=== PATIENT | male | born 1980 | race Caucasian/White ===

== ENCOUNTER 2016-05-18 11:04 | Emergency (ER) | payer OTHER ==
[2016-05-18 11:16] VITALS: BMI 23.5
[2016-05-18] MEDS ORDERED: ONDANSETRON 4 MG/2 ML VIAL ONE (11:48)
--- NOTE | 2016-05-18 11:50 | PDOC ---
History of Present Illness - General History Source: Patient - History of Present Illness Initial Comments: 05/18/16 12:06 The patient is a 35 year old male, with no significant past medical history who presents to the emergency department with nausea, abdominal pain, vomiting, loss of appetite, and diarrhea for about 4 days. Patient reports having a spinal disc fusion (s/p work related accident) about 2 years ago, and being prescribed percocets for pain. He reports since the surgery continuing taking percocets, taking them more regularly for the past 3-6 months. He reports trying to stop taking percocet, having noticed a recent dependency. He states stop taking percocets about 4 days ago and notes becoming symptomatic around the same time. He reports since then having multiple episodes of vomiting bring up yellow fluid. He also notes having constant sharp abdominal pain, ranking his pain a 9/10 in pain intensity. He denies any recent fevers, chills, headache or dizziness. Allergies: NKA Past surgical history: Spinal disc fusion (2 years ago) Social History: Current everyday smoker (10 cigarettes per day). Cocaine and marijuana use. See HPI. PCP: None reported. <Jesus Mendez - Last Filed: 05/18/16 12:09> - General History Source: Patient, Old Records Exam Limitations: No Limitations <Patricia Guzman - Last Filed: 05/18/16 16:57> - General Chief Complaint: Vomiting/Diarrhea Stated Complaint: withdrawal of percocet VOMITING, LOSS OF APPETITE Time Seen by Provider: 05/18/16 11:49 Past History <Jesus Mendez - Last Filed: 05/18/16 12:09> - Past Medical History Other medical history: back problem - Psycho/Social/Smoking Cessation Hx Anxiety: No Suicidal Ideation: No Smoking Status: No Smoking History: Current every day smoker Have you smoked in the past 12 months: Yes Number of Cigarettes Smoked Daily: 10 Information on smoking cessation initiated: Yes 'Breaking Loose' booklet given: 05/18/16 Hx Alcohol Use: No Drug/Substance Use Hx: No Substance Use Type: None <Patricia Guzman - Last Filed: 05/18/16 16:57> - Past Medical History Allergies/Adverse Reactions: Allergies Allergy/AdvReac Type Severity Reaction Status Date / Time No Known Allergies Allergy Verified 05/18/16 11:11 Home Medications: Ambulatory Orders No Home Medications 0 dose .ROUTE UTDICT 09/24/12 Review of Systems - Review of Systems Able to Perform ROS?: Yes Comments:: 05/18/16 12:06 CONSTITUTIONAL: +loss of appetite. Absent: fever, no chills, no fatigue EYES: Absent: visual changes ENT: Absent: ear pain, no sore throat CARDIOVASCULAR: Absent: chest pain, no palpitations RESPIRATORY: Absent: cough, no SOB GI: +nausea, vomiting, diarrhea, abdominal pain ,no constipation, GENITOURINARY: Absent: dysuria, no frequency, no hematuria MUSKULOSKELETAL: Absent: back pain, no arthralgia, no myalgia SKIN: Absent: rash NEURO: Absent: headache <Jesus Mendez - Last Filed: 05/18/16 12:09> *Physical Exam - Vital Signs Last Vital Signs Temp Pulse Resp BP Pulse Ox 98.0 F 118 H 18 129/74 100 05/18/16 11:13 05/18/16 11:13 05/18/16 11:13 05/18/16 11:13 05/18/16 11:13 - Physical Exam Comments: 05/18/16 12:06 GENERAL: Well developed, well nourished. Awake and alert. No acute distress. HEENT: Normocephalic, atraumatic. PERRLA, EOMI. No conjunctival pallor. Sclera are non- icteric. Moist mucous membranes. Oropharynx is clear. NECK: Supple. Full ROM. No JVD. Carotid pulses 2+ and symmetric, without bruits. No thyromegaly. No lymphadenopathy. CARDIOVASCULAR: Regular rate and rhythm. No murmurs, rubs, or gallops. Distal pulses are 2+ and symmetric. PULMONARY: No evidence of respiratory distress. Lungs clear to auscultation bilaterally. No wheezing, rales or rhonchi. ABDOMINAL: Soft. Non-tender. Non-distended. No rebound or guarding. No organomegaly. Normoactive bowel sounds. MUSCULOSKELETAL Normal range of motion at all joints. No bony deformities or tenderness. No CVA tenderness. EXTREMITIES: No cyanosis. No clubbing. No edema. No calf tenderness. SKIN: Warm and dry. Normal capillary refill. No rashes. No jaundice. NEUROLOGICAL: Alert, awake, appropriate. Cranial nerves 2-12 intact. No deficits to light touch and temperature in face, upper extremities and lower extremities. No motor deficits in the in face, upper extremities and lower extremities. Normoreflexic in the upper and lower extremities. Normal speech. Toes are down- going bilaterally. Gait is normal without ataxia. PSYCHIATRIC: Cooperative. Good eye contact. Appropriate mood and affect. <Jesus Mendez - Last Filed: 05/18/16 12:09> - Vital Signs Last Vital Signs Temp Pulse Resp BP Pulse Ox 98.0 F 118 H 18 129/74 100 05/18/16 11:13 05/18/16 11:13 05/18/16 11:13 05/18/16 11:13 05/18/16 11:13 <Patricia Guzman - Last Filed: 05/18/16 16:57> ED Treatment Course - LABORATORY CBC & Chemistry Diagram: 05/18/16 12:00 05/18/16 12:00 <Jesus Mendez - Last Filed: 05/18/16 12:09> - LABORATORY CBC & Chemistry Diagram: 05/18/16 12:00 05/18/16 12:00 <Patricia Guzman - Last Filed: 05/18/16 16:57> Medical Decision Making - Medical Decision Making 05/18/16 12:04 35-year-old male with history of chronic opiate dependence secondary to Percocet use from a prior spinal injury presents to the emergency Department with complaints of abdominal cramping and vomiting after not taking Percocet for the past 4 days. Differential diagnosis includes but is not limited to: Opiate withdrawal, dehydration, electrolyte abnormality, toxic/metabolic derangement. Plan: 1. Labs 2. IV fluids for hydration 3. Supportive treatment with antiemetics 4. Buprinex 5. Observe and reevaluate 05/18/16 15:28 Addendum: The patient's labs and ultrasound were reviewed and are noted in the EMR. He is feeling improved but is emotionally upset about his dependenace on opiates. I have counseled the patient and will give him information for detox/ rehab centers. I have advised the patient that he should follow-up with a PCP and to return to the ED if his Sx persist, worsen or new Sx arise. <Patricia Guzman - Last Filed: 05/18/16 16:57> *DC/Admit/Observation/Transfer - Attestations Scribe Attestion: 05/18/16 12:07 Documentation prepared by Jesus Mendez, acting as certified medical records coder for Patricia Guzman MD. <Jesus Mendez - Last Filed: 05/18/16 12:09> - Discharge Dispostion Admit: No - Attestations Physician Attestion: 05/18/16 12:06 I, Dr. Patricia Guzman, attest that the scribes documentation that appears above has been prepared under my direction and personally reviewed by me in its entirety. I confirmed that the note above accurately reflects all work, treatment, procedures, and medical decision-making performed by me. <Patricia Guzman - Last Filed: 05/18/16 16:57> Diagnosis at time of Disposition: Opioid withdrawal - Discharge Dispostion Disposition: HOME Condition at time of disposition: Stable - Patient Instructions Printed Discharge Instructions: DI for Prescription Opioid Use, DI for Opioid Addiction Additional Instructions: You may eat or drink anything that is not a gastric irritant. Follow-up with a primary care physician within one week and return to the ED if your symptoms persist, worsen or new symptoms arise.
[2016-05-18] MEDS ORDERED: SODIUM CHLORIDE 1,000 ML IV STA ×2 (12:03→13:47)
[2016-05-18] MEDS ORDERED: BUPRENORPHINE HCL 8 MG TAB.SUBL SL ONE (12:04)
[2016-05-18] MEDS ORDERED: ONDANSETRON 4 MG/2 ML VIAL IVPUSH ONE (12:09)
[2016-05-18 12:15] LABS: BASOPHIL 0.2 % (0-2.0); MCH 30.6 pg (25.7-33.7); MCHC 32.9 g/dl (32.0-35.9); MEAN CELL VOLUME 92.9 fl (80-96); MEAN PLT VOLUME 8.3 fl (7.5-11.1); NEUTROPHILS 88.5 % (42.8-82.8); PLATELET COUNT 423 K/MM3 (134-434); RDW 13.5 % (11.9-15.9); WHITE BLOOD COUNT 16.8 K/mm3 (4.0-10.0)
[2016-05-18 12:38] LABS: ALBUMIN 4.9 g/dl (3.4-5.0); ANION GAP 12 (8-16); CALCIUM 10.7 mg/dL (8.5-10.1); CO2 25 mmol/L (21-32); CREATININE 0.9 mg/dL (0.7-1.3); GLUCOSE,RANDOM 106 mg/dL (74-106); MAGNESIUM 2.2 mg/dL (1.8-2.4); PHOSPHOROUS 3.4 mg/dL (2.5-4.9); SGOT/AST 25 U/L (15-37); SGPT/ALT 51 U/L (12-78)
[2016-05-18 12:39] LABS: ALK PHOS 60 U/L (45-117); BILIRUBIN,TOTAL 1.6 mg/dL (0.2-1.0)
[2016-05-18] MEDS ORDERED: FAMOTIDINE 20 MG/50 ML IVPB 50 ML IVPB ONE ×2 (13:48→14:06)
[2016-05-18 16:57] VITALS: BP 149/85; PULSE 89; TEMP 99.4
== END 2016-05-18 17:20 | disposition home or self-care (01) ==
LOC: JER 11:04
PROC: 3E033GC Introduction of Other Therapeutic Substance into Peripheral Vein, Percutaneous Approach (ICD-10-PCS; principal; 2016-05-18)
DX: F11.23 Opioid dependence with withdrawal (principal); T40.2X5A Adverse effect of other opioids, initial encounter; Y92.038 Other place in apartment as the place of occurrence of the external cause
CPT/HCPCS: 36415; 76700-TC; 80053; 80307; 83690; 83735; 84100; 85025; 99283-25

== ENCOUNTER 2016-11-29 19:44 | Emergency (ER) | payer OTHER ==
[2016-11-29 19:51] VITALS: BP 136/92; PULSE 100; TEMP 99.8; BMI 25.0
[2016-11-29] MEDS ORDERED: cloNIDine HCL 0.1 MG TABLET PO ONE ×2 (19:55→19:57)
[2016-11-29] MEDS ORDERED: cloNIDine HCL 0.1 MG TABLET ONE (19:56)
[2016-11-29] MEDS ORDERED: ONDANSETRON *ODT* 4 MG TABLET ONE (19:57)
[2016-11-29] MEDS ORDERED: ONDANSETRON *ODT* 4 MG TABLET SL ONE (19:57)
--- NOTE | 2016-11-29 19:57 | PDOC ---
History of Present Illness - General History Source: Patient Exam Limitations: No Limitations - History of Present Illness Initial Comments: 11/29/16 20:05 The patient is a 35 year old male, with a significant past medical history of a spinal disk fusion(on percocet for pain) and chronic back pain, who presents to the emergency department complaining of percocet withdrawal for approximately 2 days. The patient reports he has been taking percocet 10 mg 3 times a day intermittently for the past 2 years and consistently during the past 6 months. Patient reports he stopped taking percocet 2 days ago. However, since he stopped his medication he has developed associated abdominal pain, nausea, and vomiting(nonbloody/ nonbilious). Patient reports associated anxiety. He denies any chest pain, shortness of breath, diaphoresis, or palpitations. He denies any fever, chills, headache, or dizziness. PAST MEDICAL HISTORY: Chronic back pain PAST SURGICAL HISTORY: Spinal disk fusion FAMILY HISTORY: no pertinent history SOCIAL HISTORY: Pt lives with family and is employed. Current everyday smoker. Social ETOH use. Medical marijuna use. MEDICATIONS: reviewed ALLERGIES: As per nursing notes General: No fevers or chills, no weakness, no weight loss HEENT: No change in vision. No sore throat,. No ear pain CardioVascular: No chest pain or shortness of breath Respiratory:No cough, or wheezing. Gastrointestinal: Yes: +abdominal pain, +nausea, +vomiting. No diarrhea or constipation. No rectal bleeding Genitourinary: No dysuria, hematuria, or frequency Musculoskeletal: No joint or muscle pain or swelling Neurologic: No headache, vertigo, dizziness or loss of consciousness Psychiatric: Yes: +anxiety. No depression Skin: No rashes or easy bruising Endocrine: no increased thirst or abnormal weight change Allergic: no skin or latex allergy All other systems reviewed and normal General: Well-nourished well-developed individual, no acute distress HEENT: Throat: Normal, tonsils normal, no erythema or exudate Neck: Supple, no meningeal signs, no lymphadenopathy Eyes::Pupils equal reactive and round, extraocular motion intact Chest: Nontender to palpation Cardiac: Tachycardic. S1-S2 normal, regular rhythm, no murmurs rubs or gallops Respiratory: Lungs clear to auscultation bilateral Abdomen: Mild increase in bowel sounds. Soft, nondistended, nontender to palpation diffusely Extremities: Warm, dry, no cyanosis, clubbing, or edema Skin: No rashes Neuro: Alert and oriented x3, nonfocal exam, grossly intact, normal gait Psych: Normal mood and affect <Pal Miranda - Last Filed: 11/29/16 20:06> - General History Source: Patient Exam Limitations: No Limitations <Thalia Medina I - Last Filed: 11/29/16 21:51> - General Chief Complaint: Vomiting/Diarrhea Stated Complaint: WITHDRAWL FROM PERCOCET Time Seen by Provider: 11/29/16 19:54 Past History <Pal Miranda - Last Filed: 11/29/16 20:06> - Psycho/Social/Smoking Cessation Hx Anxiety: No Suicidal Ideation: No Smoking Status: No Smoking History: Current every day smoker Have you smoked in the past 12 months: Yes Number of Cigarettes Smoked Daily: 10 Information on smoking cessation initiated: Yes 'Breaking Loose' booklet given: 05/18/16 Hx Alcohol Use: Yes (OCCAS.) Drug/Substance Use Hx: Yes (MEDICAL MARIJUANA) Substance Use Type: None <Thalia Medina I - Last Filed: 11/29/16 21:51> - Past Medical History Allergies/Adverse Reactions: Allergies Allergy/AdvReac Type Severity Reaction Status Date / Time No Known Allergies Allergy Verified 11/29/16 19:46 Home Medications: Ambulatory Orders No Home Medications 0 dose .ROUTE UTDICT 09/24/12 Clonidine HCl 0.1 mg PO Q4H PRN #76 tablet 11/29/16 *Physical Exam - Vital Signs Last Vital Signs Temp Pulse Resp BP Pulse Ox 99.8 F H 100 H 20 136/92 100 11/29/16 19:46 11/29/16 19:46 11/29/16 19:46 11/29/16 19:46 11/29/16 19:46 <Pal Miranda - Last Filed: 11/29/16 20:06> - Vital Signs Last Vital Signs Temp Pulse Resp BP Pulse Ox 99.8 F H 100 H 20 136/92 100 11/29/16 19:46 11/29/16 19:46 11/29/16 19:46 11/29/16 19:46 11/29/16 19:46 <Thalia Medina I - Last Filed: 11/29/16 21:51> *DC/Admit/Observation/Transfer - Attestations Scribe Attestion: 11/29/16 20:06 Documentation prepared by Pal Miranda, acting as medical care administrator for Thalia Medina MD. <Pal Miranda - Last Filed: 11/29/16 20:06> - Discharge Dispostion Admit: No <Thaila Medina I - Last Filed: 11/29/16 21:51> Diagnosis at time of Disposition: OPIOD WITHDRAWL - Discharge Dispostion Disposition: HOME Condition at time of disposition: Stable - Prescriptions Prescriptions: Clonidine HCl 0.1 mg PO Q4H PRN #76 tablet PRN Reason: Withdrawal(Cont Subst) - Patient Instructions Additional Instructions: Take clonidine for your withdrawal symptoms as per the following protocol. Day 1: 0.1-0.2 mg orally every 4 hours up to 1 mg Day 2-4: 0.1-0.2 mg orally every 4 hours up to 1.2 mg You will be detoxed of the opiods in 4 days, However you will then need to taper the clonidine for another 5 days Day 5 to completion: Reduce 0.2 mg/day; given in divided doses; the night-time dose should be reduced last; or reduce total dosage by one-half each day not to exceed 0.4 mg/day You will be detoxed of the opiods in 5 days, However you will then need to taper the clonidine for another 5 days Blood pressure monitoring is important as hypotension can occur especially in thin patients. Advise patient to take blood pressure before and 20 minutes after a dose of Clonidine. If lightheaded or dizzy, patient should lie down. Adequate fluid intake is important. Contact physician if dizziness continues .Using clonidine for opiate withdrawal can help to relieve some of the most severe symptoms. However, using clonidine for opiate withdrawal will not eliminate all of your symptoms. Using clonidine for opiate withdrawal does nothing for fatigue, nor does have the ability to rebalance brain chemistry that has been disrupted from opiate abuse. (will not take away the cravings for opiods). Return to the emergency department immediately with ANY new, persistent or worsening symptoms. Continue any medications as previously prescribed by your physician. You should follow up with your primary doctor as soon as possible regarding today's emergency department visit. . Please make sure your doctor reviews the results of your emergency evaluation. Thank you for coming to the Emergency Department today for your care. It was a pleasure to see you today. Please note that your evaluation is INCOMPLETE until you follow-up with your doctor.
[2016-11-29] MEDS ORDERED: SODIUM CHLORIDE 1,000 ML IV ONE (20:09)
== END 2016-11-29 21:11 | disposition home or self-care (01) ==
LOC: FER 19:44
PROC: 3E0337Z Introduction of Electrolytic and Water Balance Substance into Peripheral Vein, Percutaneous Approach (ICD-10-PCS; principal; 2016-11-29)
DX: F11.23 Opioid dependence with withdrawal (principal); F17.210 Nicotine dependence, cigarettes, uncomplicated; G89.29 Other chronic pain
CPT/HCPCS: 99281-25

== ENCOUNTER 2017-03-21 07:30 | Emergency (ER) | payer OTHER ==
[2017-03-21] MEDS ORDERED: SODIUM CHLORIDE 0.9% 1000 ML INFUS.BAG IV ONE ×3 (07:33→09:55)
[2017-03-21] MEDS ORDERED: ONDANSETRON 4 MG/2 ML VIAL IVPUSH ONE (07:33)
[2017-03-21] MEDS ORDERED: FAMOTIDINE 20 MG/50 ML IVPB 20 MG/50 ML MG IVPB ONE (07:33)
[2017-03-21] MEDS ORDERED: DICYCLOMINE HCL 20 MG/2 ML AMPUL IM ONE (07:33)
[2017-03-21 07:34] VITALS: TEMP 98.4; BMI 23.5
--- NOTE | 2017-03-21 07:42 | PDOC ---
History of Present Illness - General Chief Complaint: Pain Stated Complaint: ABDOMINAL PAIN,VOMITING Time Seen by Provider: 03/21/17 07:32 - History of Present Illness Initial Comments: 03/21/17 07:36 36yo male presents ambulatory from home c/o epigastric abd pain assoc with n/v/ d. States his symptoms started yesterday. States 6-8 episodes of vomiting - nonbloody/nonbilious and loose stool. No blood in the stool. States he has had a problem with taking percocet. States he wax injured at work - works with [employer] where his eye and back were injured. States he has had a fusion in his back. States he has stopped taking the percocet before and then if the pain gets bad he will start again and then spiral down with the percocet use. States he was given clonidine to help him stop taking the percocet. States last percocet use was 4 days ago. States symptoms started yesterday. Denies other drug use or etoh use. Denies f/c. NO dysuria. No radiation of the pain. Denies all other complaints. PMHx: narcotic abuse PSHx: spinal surgery Allergies: NKDA Social: denies etoh, smokes cigarrettes, percocet use Past History - Past Medical History Allergies/Adverse Reactions: Allergies Allergy/AdvReac Type Severity Reaction Status Date / Time No Known Allergies Allergy Verified 03/21/17 07:31 Home Medications: Ambulatory Orders Clonidine HCl 0.1 mg PO Q4H PRN #76 tablet 11/29/16 Dicyclomine HCl [Bentyl] 10 mg GT TID PRN #10 capsule 03/21/17 Famotidine [Pepcid] 20 mg PO DAILY #14 tablet 03/21/17 Ondansetron [Zofran Odt -] 4 mg GT TID PRN #10 tab.rapdis 03/21/17 Oxycodone HCl/Acetaminophen [Percocet 5-325 mg Tablet] 0 tab PO ASDIR 03/21/17 COPD: No Other medical history: back pain due to work related injury - Suicide/Smoking/Psychosocial Hx Smoking Status: No Smoking History: Former smoker Have you smoked in the past 12 months: Yes Number of Cigarettes Smoked Daily: 10 Information on smoking cessation initiated: Yes 'Breaking Loose' booklet given: 03/21/17 Hx Alcohol Use: Yes (occasional) Drug/Substance Use Hx: No Substance Use Type: None Review of Systems - Review of Systems Able to Perform ROS?: Yes Is the patient limited Luxembourgish proficient: No Constitutional: No: Chills, Fever HEENTM: No: Nose Congestion, Throat Pain Respiratory: No: Cough, Shortness of Breath, Wheezing Cardiac (ROS): No: Chest Pain, Irregular Heart Rate ABD/GI: Yes: Diarrhea, Nausea, Vomiting, Abdominal cramping. No: Abdominal Distended : No: Burning, Dysuria Musculoskeletal: No: Back Pain Integumentary: No: Bruising Neurological: No: Headache, Numbness, Paresthesia All Other Systems: Reviewed and Negative *Physical Exam - Vital Signs Last Vital Signs Temp Pulse Resp BP Pulse Ox 98.4 F 105 H 18 141/94 99 03/21/17 07:31 03/21/17 07:31 03/21/17 07:31 03/21/17 07:31 03/21/17 07:31 - Physical Exam General Appearance: Yes: Nourished, Appropriately Dressed, Mild Distress HEENT: positive: EOMI, Normal Voice, Pharynx Normal Neck: positive: Supple. negative: Rigid Respiratory/Chest: positive: Lungs Clear, Normal Breath Sounds. negative: Chest Tender, Respiratory Distress Cardiovascular: positive: Regular Rhythm, Tachycardia Gastrointestinal/Abdominal: positive: Flat, Soft, Tenderness (epigastric region) . negative: Guarding, Rebound Lymphatic: negative: Adenopathy Musculoskeletal: positive: Normal Inspection. 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 labs reviewed mildly elevated wbc - most likely reactive vs viral gastroenteritis po challenge given 03/21/17 09:55 pt with vomiting after PO challenge. Will remedicate, give another liter ns and reassess if n/v persists may need to stay in obs for ivf hydration and nausea control 03/21/17 10:01 pt with intractable n/v - will place in observation no pmd microblog sent to [facility] 03/21/17 10:52 case discussed with Merari from - accepts pt to obs *DC/Admit/Observation/Transfer Diagnosis at time of Disposition: Opioid withdrawal, Intractable nausea and vomiting - Discharge Dispostion Condition at time of disposition: Fair Admit: Yes - Prescriptions Prescriptions: Dicyclomine HCl [Bentyl] 10 mg GT TID PRN #10 capsule PRN Reason: Mild Pain Famotidine [Pepcid] 20 mg PO DAILY #14 tablet Ondansetron [Zofran Odt -] 4 mg GT TID PRN #10 tab.rapdis PRN Reason: Nausea - Referrals Referrals: Rodger Urena MD [Staff Physician] - Dorian Escalera MD [Staff Physician] - - Patient Instructions Printed Discharge Instructions: Smoking Cessation Additional Instructions: Please stop using percocet. Please stick to the BRAT diet (bananas, rice, apple sauce, and toast). Please take all meds as prescribed. Please return to the ED with any further complaints. If you are interested in DETOX - please go to [facility]. - Post Discharge Activity
[2017-03-21] MEDS ORDERED: DICYCLOMINE HCL 20 MG TABLET PO ONE (07:49)
[2017-03-21] MEDS ORDERED: cloNIDine HCL 0.1 MG TABLET PO ONE (08:17)
[2017-03-21] MEDS ORDERED: MAG HYDROX/AL HYDROX/SIMETH 30 ML UNIT-DOSE CUP PO ONE (08:34)
[2017-03-21] MEDS ORDERED: LIDOCAINE VISCOUS 2% ORAL/TOP 20 ML UNIT-DOSE CUP MM ONE (08:34)
[2017-03-21 08:42] LABS: BASO % 0.8 % (0-2.0); MCH 31.6 pg (25.7-33.7); MEAN PLT VOLUME 9.1 fl (7.5-11.1); NEUT % 87.1 % (42.8-82.8); PLATELET COUNT 488 K/MM3 (134-434); RDW 12.6 % (11.9-15.9); WHITE BLOOD COUNT 14.4 K/mm3 (4.0-10.8)
[2017-03-21 08:51] LABS: ALK PHOS 57 U/L (32-92); ANION GAP 12 (8-16); BILIRUBIN,TOTAL 1.1 mg/dl (0.2-1.0); CALCIUM 10.7 mg/dl (8.4-10.2); CO2 28 mmol/L (22-28); CREATININE 0.8 mg/dl (0.6-1.3); GLUCOSE,RANDOM 134 mg/dl (74-106); MAGNESIUM 1.8 mg/dL (1.8-2.4); SGOT/AST 23 U/L (10-42); SGPT/ALT 29 U/L (10-40); TOT PROT 8.6 g/dl (6.4-8.3)
[2017-03-21] MEDS ORDERED: METOCLOPRAMIDE HCL INJECTION 10 MG/2 ML VIAL IVPUSH ONE (09:38)
[2017-03-21 11:19] LABS: URINE APPEARANCE Clear; URINE BILIRUBIN Negative (NEGATIVE); URINE BLOOD Negative (NEGATIVE); URINE GLUCOSE (UA) Negative (NEGATIVE); URINE KETONE Trace (NEGATIVE); URINE LEUK ESTERASE Negative (NEGATIVE); URINE NITRITE Negative (NEGATIVE); URINE UROBILINOGEN 0.2 (0.2-1.0)
[2017-03-21 11:20] VITALS: BP 137/89; PULSE 80
[2017-03-21 11:23] LABS: URINE COLOR YELLOW; URINE PROTEIN 1+ (NEGATIVE)
[2017-03-21 12:00] LABS: URINE RBC NEGATIVE /hpf (0-3)
[2017-03-21 12:01] LABS: URINE HYALINE CAST 0-1 /lpf; URINE WBC 0-1 (0-2)
[2017-03-21 15:22] LABS: BASO # 0.1 # (0.1-1)
[2017-03-21 15:25] LABS: LYMPH # 1.3 # (8-40); MONO # 0.5 #; NEUT # 12.5 # (42.8-82.8)
== END 2017-03-21 11:28 | disposition home or self-care (01) ==
LOC: FER 07:30 → FM/S 11:05 → UNDOADMOB 11:05 → FER 11:28
PROC: 3E0337Z Introduction of Electrolytic and Water Balance Substance into Peripheral Vein, Percutaneous Approach (ICD-10-PCS; principal; 2017-03-21)
DX: F11.23 Opioid dependence with withdrawal (principal); R11.2 Nausea with vomiting, unspecified; Z87.891 Personal history of nicotine dependence
CPT/HCPCS: 36415; 80053; 81003; 81015; 83605; 83690; 83735; 85025; 99283-25

== ENCOUNTER 2018-04-25 21:11 | Inpatient (IN) | payer OTHER ==
[2018-04-25 21:32] VITALS: BMI 24.7
--- NOTE | 2018-04-25 21:34 | PDOC ---
History of Present Illness - General History Source: Patient, Spouse Exam Limitations: No Limitations - History of Present Illness Initial Comments: 04/25/18 22:37 The patient is a 37 year old male, with a significant past medical history of opioid abuse, who presents to the emergency department with, pain to the right buttock with associated nausea and vomiting. As per patient, he received a Vivitrol shot a week ago and approximately 3 days later he began experiencing pain to the injection site with associated swelling and inability to lay/sit on the buttock. The patient notes going to urgent care yesterday and having an ultrasound of the buttock done today which depicted either fluid or a bruising to the area. She notes today he began feeling chills, nausea, and vomiting, prompting his arrival to the ED. He denies any purulent discharge to the buttock. He denies any recent =headache or dizziness. He denies any recent diarrhea or constipation. He denies any recent chest pain or shortness of breath. He denies any recent dysuria, frequency, urgency or hematuria. Allergies: NKDA Social History: Smoker (2-3 per day, on Chantix for a week has not taken the past two days). <Sandeep Gutierrez - Last Filed: 04/25/18 23:15> <Brianda Starkey - Last Filed: 04/26/18 02:10> - General Chief Complaint: Pain, Acute Stated Complaint: PAIN POST VIVITROL INJECTION Time Seen by Provider: 04/25/18 21:14 Past History <Sandeep Gutierrez - Last Filed: 04/25/18 23:15> - Past Medical History COPD: No DVT: No - Suicide/Smoking/Psychosocial Hx Smoking Status: No Smoking History: Current every day smoker Have you smoked in the past 12 months: Yes Number of Cigarettes Smoked Daily: 1 Information on smoking cessation initiated: Yes 'Breaking Loose' booklet given: 03/21/17 Hx Alcohol Use: No Drug/Substance Use Hx: No Substance Use Type: Alcohol, Opiates <Brianda Starkey - Last Filed: 04/26/18 02:10> - Past Medical History Allergies/Adverse Reactions: Allergies Allergy/AdvReac Type Severity Reaction Status Date / Time No Known Allergies Allergy Verified 04/25/18 21:12 Home Medications: Ambulatory Orders Naltrexone Microspheres [Vivitrol] 380 mg IM MONTHLY 04/25/18 Review of Systems - Review of Systems Able to Perform ROS?: Yes Comments:: 04/25/18 22:38 CONSTITUTIONAL: Present: Chills. Absent: fever, no fatigue EYES: Absent: visual changes ENT: Absent: ear pain, no sore throat CARDIOVASCULAR: Absent: chest pain, no palpitations RESPIRATORY: Absent: cough, no SOB GI: Present: Nausea, vomiting. Absent: abdominal pain, no constipation, no diarrhea GENITOURINARY: Absent: dysuria, no frequency, no hematuria MUSKULOSKELETAL: Present: Right buttock pain. SKIN: Absent: rash NEURO: Absent: headache All Other Systems: Reviewed and Negative <Sandeep Gutierrez - Last Filed: 04/25/18 23:15> *Physical Exam - Vital Signs Last Vital Signs Temp Pulse Resp BP Pulse Ox 98.2 F 90 16 135/91 99 04/25/18 21:17 04/25/18 21:17 04/25/18 21:17 04/25/18 21:17 04/25/18 21:17 - Physical Exam Comments: 04/25/18 22:39 GENERAL: The patient is awake, alert, and fully oriented, in no acute distress. HEAD:Normal with no signs of trauma. EYES: Pupils equal, round and reactive to light, extraocular movements intact, sclera anicteric, conjunctiva clear. EXTREMITIES: Normal range of motion, no edema. BUTTOCK: Right: 12cm x 7cm of firm marked tenderness, edematous area of the right buttock. No erythema, fluctuance, warmth, or purulent discharge. NEUROLOGICAL: Normal speech, normal gait. Sensation to bilateral upper and lower extremities equal 5/5. PSYCH: Normal mood, normal affect. <Sandeep Gutierrez - Last Filed: 04/25/18 23:15> - Vital Signs Last Vital Signs Temp Pulse Resp BP Pulse Ox 98.2 F 90 16 135/91 99 04/25/18 21:17 04/25/18 21:17 04/25/18 21:17 04/25/18 21:17 04/25/18 21:17 <Brianda Starkey - Last Filed: 04/26/18 02:10> Moderate Sedation - Procedure Monitoring Vital Signs: Procedure Monitoring Vital Signs Temperature 98.2 F 04/25/18 21:17 Pulse Rate 90 04/25/18 21:17 Respiratory Rate 16 04/25/18 21:17 Blood Pressure 135/91 04/25/18 21:17 O2 Sat by Pulse Oximetry (%) 99 04/25/18 21:17 <Sandeep Gutierrez - Last Filed: 04/25/18 23:15> - Procedure Monitoring Vital Signs: Procedure Monitoring Vital Signs Temperature 98.2 F 04/25/18 21:17 Pulse Rate 90 04/25/18 21:17 Respiratory Rate 16 04/25/18 21:17 Blood Pressure 135/91 04/25/18 21:17 O2 Sat by Pulse Oximetry (%) 99 04/25/18 21:17 <Brianda Starkey - Last Filed: 04/26/18 02:10> ED Treatment Course - LABORATORY CBC & Chemistry Diagram: 04/25/18 22:45 04/25/18 22:45 <Sandeep Gutierrez - Last Filed: 04/25/18 23:15> - LABORATORY CBC & Chemistry Diagram: 04/25/18 22:45 04/25/18 22:45 <Brianda Starkey - Last Filed: 04/26/18 02:10> Medical Decision Making - Medical Decision Making Documentation has been prepared under my direction and personally reviewed by me in its entirety. I attest that this documented accurately reflects all work, treatment, procedures and medical decision making performed by me. As noted above, this 37-year-old man with a history of opioid dependence but no other significant medical history except for chronic low back pain and spinal fusion secondary to work related injury presents with progressive pain in right buttock in the area of Vivitrol IM injection one week ago. Patient has had subjective fever and chills today and intermittent nausea/vomiting. No previous history of bruising/prolonged bleeding. No history of cellulitis or abscess. Exam as noted. Patient is afebrile without evidence of hypotension. There is mild tachycardia 90 bpm Laboratory evaluation notable for white blood cell count 16,100; INR slightly elevated 1.22. Chemistry profile is essentially normal CT scan with contrast of right buttock performed. Preliminary interpretation by Imaging telecommunications repairer: 7.6 centimeter peripherally enhancing collection within the right gluteus malena muscle. Interpretation discussed with radiologist: because of the heterogeneity and ring enhancement of the collection, it is most consistent with abscess. Blood cultures drawn. Vancomycin 1 g IV started. 04/26/18 02:09 Case discussed with Sarika from [facility] service. Patient will be admitted as inpatient under 's service. <Brianda Starkey - Last Filed: 04/26/18 02:10> *DC/Admit/Observation/Transfer - Attestations Scribe Attestion: 04/25/18 22:41 Documentation prepared by Sandeep Gutierrez, acting as certified medical aide for Brianda Starkey MD. <Sandeep Gutierrez - Last Filed: 04/25/18 23:15> - Discharge Dispostion Decision to Admit order: Yes <Brianda Starkey - Last Filed: 04/26/18 02:10> Diagnosis at time of Disposition: Abscess of right buttock - Discharge Dispostion Condition at time of disposition: Stable
[2018-04-25] MEDS ORDERED: ACETAMINOPHEN 1000 MG/100 ML VIAL (NON FORMULARY) IVPB ONE (22:30)
[2018-04-25] MEDS ORDERED: ACETAMINOPHEN INJECTION 100 ML IVPB ONE (22:45)
[2018-04-25 22:53] LABS: BASO % 0.4 % (0-2.0); EOS % 0.9 % (0-4.5); HEMATOCRIT 43.7 % (35.4-49); HEMOGLOBIN 14.3 GM/dl (11.7-16.9); LYMPH % 12.7 % (8-40); MCH 31.1 pg (25.7-33.7); MCHC 32.7 g/dl (32.0-35.9); MEAN PLT VOLUME 8.2 fl (7.5-11.1); MONO % 6.3 % (3.8-10.2); NEUT % 79.7 % (42.8-82.8); PLATELET COUNT 477 K/MM3 (134-434); RBC 4.59 M/mm3 (4.00-5.60); RDW 12.6 % (11.9-15.9); WHITE BLOOD COUNT 16.1 K/mm3 (4.0-10.8)
[2018-04-25 23:08] LABS: INR 1.22 (0.82-1.09); PROTHROMBIN TIME (PATIENT) 13.6 SEC (10.2-13.0)
[2018-04-25 23:13] LABS: ALBUMIN 3.8 g/dl (3.4-5.0); ALK PHOS 62 U/L (45-117); ANION GAP 9 MMOL/L (8-16); BILIRUBIN,TOTAL 0.5 mg/dl (0.2-1); BLOOD UREA NITROGEN 10 mg/dl (7-18); CHLORIDE 105 mmol/L (98-107); CO2 23 mmol/L (21-32); CREATININE 0.6 mg/dl (0.55-1.3); GLUCOSE,RANDOM 105 mg/dl (74-106); POTASSIUM 3.5 mmol/L (3.5-5.1); SGOT/AST 24 U/L (15-37); SGPT/ALT 26 U/L (13-61); SODIUM 137 mmol/L (136-145); TOT PROT 7.3 g/dl (6.4-8.2)
[2018-04-26] MEDS ORDERED: VANCOMYCIN 1,000 MG VIAL (RESTRICTED TO ID ONLY) ONE (01:21)
[2018-04-26] MEDS: VANCOMYCIN 1 GM in D5W (PRE-DOCKED) 1,000 MG/250 ML IVPB ONE ×2 (01:31→03:29)
[2018-04-26] MEDS ORDERED: ACETAMINOPHEN 325 MG TABLET (FP) PO PRN (02:28)
[2018-04-26] MEDS ORDERED: SODIUM CHLORIDE 1,000 ML IV STA (07:33)
[2018-04-26] MEDS ORDERED: PIPERACILLIN/TAZOB 3.375 GM 3.375 GM in DEXTROSE 5%-WATER - 50 ML IVPB ONE (07:45)
[2018-04-26] MEDS ORDERED: PIPERACILLIN/TAZOBACTAM 3.375 GM VIAL IVPB ONE ×2 (08:00→17:15)
[2018-04-26] MEDS ORDERED: DEXTROSE 5%-WATER - 50 ML IVPB ONE ×2 (08:00→17:15)
[2018-04-26 08:08] LABS: ANION GAP 7 MMOL/L (8-16); BLOOD UREA NITROGEN 6 mg/dl (7-18); CHLORIDE 104 mmol/L (98-107); CO2 28 mmol/L (21-32); CREATININE 0.7 mg/dl (0.55-1.3); GLUCOSE,RANDOM 102 mg/dl (74-106); POTASSIUM 3.7 mmol/L (3.5-5.1); SODIUM 139 mmol/L (136-145)
[2018-04-26 08:12] LABS: HEMATOCRIT 39.8 % (35.4-49); MCH 31.3 pg (25.7-33.7); MCHC 32.7 g/dl (32.0-35.9); MEAN CELL VOLUME 95.7 fl (80-96); MEAN PLT VOLUME 8.5 fl (7.5-11.1); PLATELET COUNT 441 K/MM3 (134-434); RBC 4.15 M/mm3 (4.00-5.60); RDW 12.3 % (11.9-15.9); WHITE BLOOD COUNT 15.4 K/mm3 (4.0-10.8)
[2018-04-26] MEDS: SODIUM CHLORIDE 1,000 ML IV SCH (08:25)
--- NOTE | 2018-04-26 10:20 | CONSULT ---
Consult Consult Specialty:: General Surgery Referred by:: Rio Reason for Consultation:: Buttock Abscess - History of Present Illness Chief Complaint: right Buttoack abscess History of Present Illness: 37-year old male with PMH significant for spinal fusion surgery and polysubstance abuse (opioids, cocaine, marijuana). Presented to ED with complaint of right buttock pain following a naltrexone IM shot one week ago. About 3 days ago began experiencing pain and swelling at the injection site. Has been experiencing shaking chills x 24 hours. We were asked to assess. - History Source History Provided By: Patient, Medical Record Limitations to Obtaining History: No Limitations - Alcohol/Substance Use Hx Alcohol Use: No - Smoking History Smoking history: Current every day smoker Have you smoked in the past 12 months: Yes Aproximately how many cigarettes per day: 3 Home Medications - Allergies Allergies/Adverse Reactions: Allergies Allergy/AdvReac Type Severity Reaction Status Date / Time No Known Allergies Allergy Verified 04/25/18 21:12 - Home Medications Home Medications: Ambulatory Orders Naltrexone Microspheres [Vivitrol] 380 mg IM MONTHLY 04/25/18 Review of Systems - Review of Systems Constitutional: denies: Chills, Fever Eyes: denies: Blind Spots, Recent Change in Vision HENT: denies: Difficult Swallowing, Throat Pain Neck: denies: Decreased ROM, Swollen Glands Cardiovascular: denies: Chest Pain, Palpitations Respiratory: denies: SOB Gastrointestinal: denies: Abdominal Pain, Constipation Genitourinary: denies: Testicular Mass, Testicular Pain Musculoskeletal: denies: Back Pain, Muscle Weakness Integumentary: denies: Pallor, Rash Neurological: denies: Seizure, Syncope Endocrine: denies: Intolerance to Cold, Unexplained Weight Gain, Unexplained Weight Loss Hematology/Lymphatic: denies: Easily Bruised, Excessive Bleeding Psychiatric: denies: Anxiety, Depression Physical Exam Vital Signs: Vital Signs Temperature 98.2 F 04/25/18 21:17 Pulse Rate 84 04/26/18 02:08 Respiratory Rate 20 04/26/18 02:08 Blood Pressure 108/65 04/26/18 02:08 O2 Sat by Pulse Oximetry (%) 99 04/26/18 03:38 Constitutional: Yes: Well Nourished, No Distress, Calm Eyes: Yes: Conjunctiva Clear, EOM Intact HENT: Yes: Atraumatic, Normocephalic Neck: Yes: Supple, Trachea Midline Cardiovascular: Yes: Regular Rate and Rhythm, S1, S2 Respiratory: Yes: Regular, CTA Bilaterally Gastrointestinal: Yes: WNL, Normal Bowel Sounds, Soft. No: Tenderness ...Rectal Exam: Yes: Deferred, Induration (right gluteal area, exquisite tenderness), Inflammation, Sphincter Tone Normal Renal/: No: Anuria, CVA Tenderness - Left, CVA Tenderness - Right Musculoskeletal: No: Muscle Pain, Muscle Weakness Extremities: No: Cool, Cyanosis Edema: No Peripheral Pulses WNL: Yes Neurological: Yes: Alert, Oriented Psychiatric: Yes: Alert, Oriented Labs: CBC, BMP 04/26/18 07:29 04/26/18 07:29 Imaging - Results Cat Scan: Report Reviewed, Image Reviewed (right intra muscuular abscess) Problem List - Problems (1) Abscess of right buttock Assessment/Plan: 37 yo male right intra muscular abscess, patient is better served with interventional radiology drainage. No acute general surgery intervention or follow up is necessary. IV antibiotics Adequate analgesia IR for drainage recall as needed Thank you for the opportunity to participate in the care of this patient. Code(s): L02.31 - CUTANEOUS ABSCESS OF BUTTOCK (2) Contusion of rib Code(s): S20.219A - CONTUSION OF UNSPECIFIED FRONT WALL OF THORAX, INIT ENCNTR Qualifiers: Encounter type: initial encounter Laterality: left Qualified Code(s): S20.212A - Contusion of left front wall of thorax, initial encounter (3) Intractable nausea and vomiting Code(s): R11.2 - NAUSEA WITH VOMITING, UNSPECIFIED (4) Opioid withdrawal Code(s): F11.23 - OPIOID DEPENDENCE WITH WITHDRAWAL
[2018-04-26] MEDS ORDERED: LIDOCAINE HCL 2% (50ML VIAL) SQ ONE (10:30)
[2018-04-26] MEDS ORDERED: LIDOCAINE HCL 2% (20ML MULTI-DOSE VIAL) NR ONE (10:30)
[2018-04-26] MEDS: ACETAMINOPHEN 1000 MG/100 ML VIAL (NON FORMULARY) IVPB PRN ×2 (10:39→20:32)
[2018-04-26] MEDS ORDERED: IBUPROFEN 800 MG/8 ML IJ IVPB ONE (13:15)
--- NOTE | 2018-04-26 14:29 | HP ---
"CHIEF COMPLAINT: Pain in right buttock PCP: None Naltrexone therapy: Dr. Augusta Winchester, [place], [place] [phone] HISTORY OF PRESENT ILLNESS: 37-year old male with PMH significant for spinal fusion surgery and polysubstance abuse (opioids, cocaine, marijuana). Presented to ED with complaint of right buttock pain following a naltrexone IM shot one week ago. About 3 days ago began experiencing pain and swelling at the injection site. Has been experiencing shaking chills x 24 hours. ER course was notable for: (1) WBC 16.1k, plts 441 (2) afebrile Recent Travel: No PAST MEDICAL HISTORY: Polysubstance abuse, on Vivitrol therapy PAST SURGICAL HISTORY: Spinal fusion surgery x 2 years Social History: Smoking: current every day smoker; started Chantix one week ago Alcohol: denies Drugs: denies Family History: Allergies No Known Allergies Allergy (Verified 04/25/18 21:12) HOME MEDICATIONS: Home Medications Medication Instructions Recorded Naltrexone Microspheres [Vivitrol] 380 mg IM MONTHLY 04/25/18 REVIEW OF SYSTEMS CONSTITUTIONAL: +shaking chills Absent: fever, diaphoresis, generalized weakness, malaise, loss of appetite, weight change HEENT: Absent: rhinorrhea, nasal congestion, throat pain, throat swelling, difficulty swallowing, mouth swelling, ear pain, eye pain, visual changes CARDIOVASCULAR: Absent: chest pain, syncope, palpitations, irregular heart rate, lightheadedness , peripheral edema RESPIRATORY: Absent: cough, shortness of breath, dyspnea with exertion, orthopnea, wheezing, stridor, hemoptysis GASTROINTESTINAL: Absent: abdominal pain, abdominal distension, nausea, vomiting, diarrhea, constipation, melena, hematochezia GENITOURINARY: Absent: dysuria, frequency, urgency, hesitancy, hematuria, flank pain, genital pain MUSCULOSKELETAL: Absent: myalgia, arthralgia, joint swelling, back pain, neck pain SKIN: +pain, swelling to right buttock Absent: rash, itching, pallor HEMATOLOGIC/IMMUNOLOGIC: Absent: easy bleeding, easy bruising, lymphadenopathy, frequent infections ENDOCRINE: Absent: unexplained weight gain, unexplained weight loss, heat intolerance, cold intolerance NEUROLOGIC: Absent: headache, focal weakness or paresthesias, dizziness, unsteady gait, seizure, mental status changes, bladder or bowel incontinence PSYCHIATRIC: Absent: anxiety, depression, suicidal or homicidal ideation, hallucinations. PHYSICAL EXAMINATION Vital Signs - 24 hr 04/25/18 04/26/18 04/26/18 21:17 02:08 03:38 Temperature 98.2 F Pulse Rate 90 84 Respiratory 16 20 Rate Blood Pressure 135/91 108/65 O2 Sat by Pulse 99 99 Oximetry (%) GENERAL: Awake, alert, and fully oriented, in no acute distress. HEAD: Normal with no signs of trauma. EYES: Pupils equal, round and reactive to light, extraocular movements intact, sclera anicteric, conjunctiva clear. No lid lag. EARS, NOSE, THROAT: Ears normal, nares patent, oropharynx clear without exudates. Moist mucous membranes. NECK: Normal range of motion, supple without lymphadenopathy, JVD, or masses. LUNGS: Breath sounds equal, clear to auscultation bilaterally. No wheezes, and no crackles. No accessory muscle use. HEART: Regular rate and rhythm, normal S1 and S2 without murmur, rub or gallop. ABDOMEN: Soft, nontender, not distended, normoactive bowel sounds, no guarding, no rebound, no masses. No hepatomegaly or splenomegaly. MUSCULOSKELETAL: Normal range of motion at all joints. No bony deformities or tenderness. No CVA tenderness. UPPER EXTREMITIES: 2+ pulses, warm, well-perfused. No cyanosis. No clubbing. No peripheral edema. LOWER EXTREMITIES: 2+ pulses, warm, well-perfused. No calf tenderness. No peripheral edema. NEUROLOGICAL: Cranial nerves II-XII intact. Normal speech. SKIN: RIGHT BUTTOCK: skin is intact; lare indurated area, exquisitely tender, not fluctuant, no erythema Laboratory Results - last 24 hr 04/25/18 04/25/18 04/25/18 22:45 22:45 22:45 WBC 16.1 H RBC 4.59 Hgb 14.3 Hct 43.7 MCV 95.0 MCH 31.1 MCHC 32.7 RDW 12.6 Plt Count 477 H MPV 8.2 Absolute Neuts (auto) 12.9 Neutrophils % 79.7 Lymphocytes % 12.7 D Monocytes % 6.3 Eosinophils % 0.9 D Basophils % 0.4 ESR PT with INR 13.6 H INR 1.22 Sodium 137 Potassium 3.5 Chloride 105 Carbon Dioxide 23 Anion Gap 9 BUN 10 Creatinine 0.6 Creat Clearance w eGFR > 60 Random Glucose 105 Calcium 9.0 Total Bilirubin 0.5 AST 24 ALT 26 Alkaline Phosphatase 62 Total Protein 7.3 Albumin 3.8 04/25/18 04/26/18 04/26/18 22:45 07:29 07:29 WBC 15.4 H RBC 4.15 Hgb 13.0 Hct 39.8 MCV 95.7 MCH 31.3 MCHC 32.7 RDW 12.3 Plt Count 441 H MPV 8.5 Absolute Neuts (auto) Neutrophils % Lymphocytes % Monocytes % Eosinophils % Basophils % ESR 18 H PT with INR INR Sodium 139 Potassium 3.7 Chloride 104 Carbon Dioxide 28 Anion Gap 7 L BUN 6 L Creatinine 0.7 Creat Clearance w eGFR > 60 Random Glucose 102 Calcium 9.0 Total Bilirubin AST ALT Alkaline Phosphatase Total Protein Albumin ASSESSMENT/PLAN: 37-year old male with PMH significant for spinal fusion surgery and polysubstance abuse (opioids, cocaine, marijuana). Presented to ED with complaint of right buttock pain following a naltrexone IM shot one week ago. Admitted for right buttock hematoma, likely infected. Right buttock hematoma --WBC 16.1 on admission --04/25 CT: 10 x 4.4 x 4 cm bilobed structure within right gluteus malena muscle consistent with hematoma, possible superinfection --hemodynamically stable --start Zosyn, ID to follow --surgery consult: better course is IR drainage --plan is for IR drainage in the morning Polysubstance abuse --undergoing naltraxone therapy as outpatinet --consult requested for Dr. Molina --IV tylenol for pain FEN Fluids: NS @ 75mL/hr Electrolytes: replete as indicated Nutrition: regular diet; NPO after midnight DVT prophylaxis: SCDs, oob, ambulation Dispo: continues to require inpatient care. To IR in am. Full code. The Drug Utilization Report below displays all of the controlled substance prescriptions, if any, that your patient has filled in the last twelve months. The information displayed on this report is compiled from pharmacy submissions to the Department, and accurately reflects the information as submitted by the pharmacies. This report was requested by: Frieda Pate | Reference #: [id number] Others' Prescriptions Patient Name: oDrian Berman Date: 1980 Address: [address] [place] [address] Sex: Male Rx Written Rx Dispensed Drug Quantity Days Supply Prescriber Name 05/18/2017 07/27/2017 forte high thc 9.7mg thc and <0.1mg cbd/capsule 1 10 Russ Perezsaeid Geetavasylshilpi 05/18/2017 05/20/2017 forte high thc 9.7mg thc and <0.1mg cbd/capsule 1 10 Gagan Hopeshilpi Search Terms: Dorian Berman, 1980 Search Date: 04/26/2018 02:37:08 PM States Searched: [place] The Drug Utilization Report below displays the controlled substance prescriptions, if any, that were dispensed in the indicated state(s). The information displayed on this report is compiled from requests submitted to other states' PMPs, and accurately reflects the information as returned by them. Blank santana indicate data not provided by other state. This report was requested by: Frieda Pate | Reference #: [id number] Prescriptions Dispensed in [place] Others' Prescriptions Patient Name: DORIAN BERMAN Date: 1980 Address: [address] [place] [address] [place] [address] Sex: Male Rx Written Rx Dispensed Drug Strength Quantity Days Supply Prescriber Name 08/11/2017 08/11/2017 DIAZEPAM 10 MG TABLET 24.0 6 MD QUIROZ JEFFREY 08/11/2017 08/11/2017 TRAMADOL HCL 50 MG TABLET 15.0 3 MD QUIROZ JEFFREY * - Drugs marked with an asterisk are compound drugs. If the compound drug is made up of more than one controlled substance, then each controlled substance will be a separate row in the table. Visit type - Emergency Visit Emergency Visit: Yes ED Registration Date: 04/26/18 Care time: The patient presented to the Emergency Department on the above date and was hospitalized for further evaluation of their emergent condition. - New Patient This patient is new to me today: Yes Date on this admission: 04/26/18 - Critical Care Critical Care patient: No"
--- NOTE | 2018-04-26 16:17 | CON.ID ---
Consult Consult Specialty:: infectious diseases Referred by:: Peg Reason for Consultation:: gluteal abscess/hematoma - History of Present Illness Chief Complaint: pain and swelling of the gluteal region History of Present Illness: 37-year old male with PMH significant for spinal fusion surgery and polysubstance abuse (opioids, cocaine, marijuana). Presented to ED with complaint of right buttock pain following a naltrexone IM shot one week ago. About 3 days ago began experiencing pain and swelling at the injection site. Has been experiencing shaking chills x 24 hours. patient was worked up and seen by surgery and imaging studies done shows probably hematoma surgery has advised drainage by the IR - History Source History Provided By: Patient Limitations to Obtaining History: No Limitations - Alcohol/Substance Use Hx Alcohol Use: No - Smoking History Smoking history: Current every day smoker Have you smoked in the past 12 months: Yes Aproximately how many cigarettes per day: 3 Home Medications - Allergies Allergies/Adverse Reactions: Allergies Allergy/AdvReac Type Severity Reaction Status Date / Time No Known Allergies Allergy Verified 04/25/18 21:12 - Home Medications Home Medications: Ambulatory Orders Naltrexone Microspheres [Vivitrol] 380 mg IM MONTHLY 04/25/18 Review of Systems - Review of Systems Constitutional: reports: No Symptoms Eyes: reports: No Symptoms HENT: reports: No Symptoms Neck: reports: No Symptoms Cardiovascular: reports: No Symptoms Respiratory: reports: No Symptoms Gastrointestinal: reports: No Symptoms Genitourinary: reports: No Symptoms Musculoskeletal: reports: No Symptoms Integumentary: reports: Erythema, Other (hematoma gluteal region) Neurological: reports: No Symptoms Endocrine: reports: No Symptoms Hematology/Lymphatic: reports: No Symptoms Physical Exam Vital Signs: Vital Signs Temperature 99.0 F 04/26/18 14:11 Pulse Rate 69 04/26/18 14:11 Respiratory Rate 16 04/26/18 14:11 Blood Pressure 125/70 04/26/18 14:11 O2 Sat by Pulse Oximetry (%) 99 04/26/18 03:38 Constitutional: Yes: Well Nourished, No Distress, Calm Eyes: Yes: Conjunctiva Clear HENT: Yes: Atraumatic, Normocephalic Neck: Yes: Supple, Trachea Midline Cardiovascular: Yes: Regular Rate and Rhythm Respiratory: Yes: Regular, CTA Bilaterally Gastrointestinal: Yes: Normal Bowel Sounds, Soft ...Rectal Exam: Yes: Other (hematoma of th gluteal region) Musculoskeletal: Yes: WNL Extremities: Yes: WNL Labs: CBC, BMP 04/26/18 07:29 04/26/18 07:29 Imaging - Results Cat Scan: Report Reviewed, Image Reviewed Assessment/Plan 37-year old male with PMH significant for spinal fusion surgery and polysubstance abuse (opioids, cocaine, marijuana). Presented to ED with complaint of right buttock pain following a naltrexone IM shot one week ago. Admitted for right buttock hematoma, likely infected. Right buttock hematoma Polysubstance abuse leukocytosis erythema of the buttocks plan will start patient on abx for aspiration by IR tomorrow rest as per the team pain control
[2018-04-26] MEDS: PIPERACILLIN/TAZOB 3.375 GM 3.375 GM in DEXTROSE 5%-WATER - 50 ML IVPB SCH (17:25)
[2018-04-26] MEDS ORDERED: PIPERACILLIN/TAZOB 3.375 GM 3.375 GM in DEXTROSE 5%-WATER - 50 ML IVPB SCH (18:00)
[2018-04-27] MEDS ORDERED: PIPERACILLIN/TAZOBACTAM 3.375 GM VIAL IVPB ONE ×3 (02:01→17:16)
[2018-04-27] MEDS ORDERED: DEXTROSE 5%-WATER - 50 ML IVPB ONE ×3 (02:01→17:16)
[2018-04-27] MEDS: PIPERACILLIN/TAZOB 3.375 GM 3.375 GM in DEXTROSE 5%-WATER - 50 ML IVPB SCH ×3 (02:20→17:30)
[2018-04-27] MEDS: ACETAMINOPHEN 1000 MG/100 ML VIAL (NON FORMULARY) IVPB PRN (02:51)
[2018-04-27] MEDS: SODIUM CHLORIDE 1,000 ML IV SCH (09:10)
--- NOTE | 2018-04-27 12:09 | PN ---
Physical Exam: SUBJECTIVE: Patient seen and examined at bedside. Back from IR procedure. Feels much, much better. Able to get out of bed, ambulate, very little pain. In excellent spirits. OBJECTIVE: Vital Signs Period Temp Pulse Resp BP Sys/Lou Pulse Ox Last 24 Hr 98.3 F-99.0 F 69-83 15-20 116-137/62-88 97-100 GENERAL: Awake, alert, and fully oriented, in no acute distress. LUNGS: Breath sounds equal, clear to auscultation bilaterally. No wheezes, and no crackles. No accessory muscle use. HEART: Regular rate and rhythm, normal S1 and S2 without murmur, rub or gallop. ABDOMEN: Soft, nontender, not distended, normoactive bowel sounds, no guarding, no rebound, no masses. No hepatomegaly or splenomegaly. MUSCULOSKELETAL: Normal range of motion at all joints. No bony deformities or tenderness. No CVA tenderness. UPPER EXTREMITIES: 2+ pulses, warm, well-perfused. No cyanosis. No clubbing. No peripheral edema. LOWER EXTREMITIES: 2+ pulses, warm, well-perfused. No calf tenderness. No peripheral edema. NEUROLOGICAL: Cranial nerves II-XII intact. Normal speech. SKIN: RIGHT BUTTOCK: small sterile gauze over aspiration site, c/d/i; surrounding area less swollen, less tender Active Medications Generic Name Dose Route Start Last Admin Trade Name Freq PRN Reason Stop Dose Admin Acetaminophen 650 mg 04/26/18 02:28 04/26/18 03:30 Tylenol - PO 650 mg Q4H PRN Administration PAIN LEVEL 1-5 Acetaminophen 1,000 mg 04/26/18 10:23 04/27/18 02:51 Ofirmev Injection - IVPB 1,000 mg Q6H PRN Administration PAIN LEVEL 1-5 Sodium Chloride 1,000 mls @ 75 mls/hr 04/26/18 07:45 04/27/18 09:10 Normal Saline - IV 75 mls/hr ASDIR KANIKA Administration Piperacillin Sod/Tazobactam 50 mls @ 100 mls/hr 04/26/18 18:00 04/27/18 09:07 Sod 3.375 gm/ Dextrose IVPB 100 mls/hr Q8H-IV KANIKA Administration Protocol ASSESSMENT/PLAN: 37-year old male with PMH significant for spinal fusion surgery and polysubstance abuse (opioids, cocaine, marijuana). Presented to ED with complaint of right buttock pain following a naltrexone IM shot one week ago. Admitted for right buttock hematoma, likely infected. Right buttock hematoma s/p naltraxone injection --WBC still elevated, afebrile --04/25 CT: 10 x 4.4 x 4 cm bilobed structure within right gluteus malena muscle consistent with hematoma, possible superinfection --aspiration >100cc's sanguinous fluid by IR --continue Zosyn, ID following Polysubstance abuse --undergoing naltraxone therapy as outpatient --discussed pain management with Dr. Molina; tylenol and motrin only FEN Fluids: stop IV fluids; PO intake adequate Electrolytes: replete as indicated Nutrition: regular diet DVT prophylaxis: SCDs, oob, ambulation Dispo: continues to require inpatient care. Full code. Visit type - Emergency Visit Emergency Visit: Yes ED Registration Date: 04/26/18 Care time: The patient presented to the Emergency Department on the above date and was hospitalized for further evaluation of their emergent condition. - New Patient This patient is new to me today: No - Critical Care Critical Care patient: No
--- NOTE | 2018-04-27 15:43 | PN ---
Progress Note, Physician History of Present Illness: doing well about 100 cc of hematoma aspirated - Current Medication List Current Medications: Active Medications Acetaminophen (Tylenol -) 650 mg PO Q4H PRN PRN Reason: PAIN LEVEL 1-5 Last Admin: 04/26/18 03:30 Dose: 650 mg Acetaminophen (Ofirmev Injection -) 1,000 mg IVPB Q6H PRN PRN Reason: PAIN LEVEL 1-5 Last Admin: 04/27/18 02:51 Dose: 1,000 mg Piperacillin Sod/Tazobactam (Sod 3.375 gm/ Dextrose) 50 mls @ 100 mls/hr IVPB Q8H-IV KANIKA; Protocol Last Admin: 04/27/18 09:07 Dose: 100 mls/hr - Objective Vital Signs: Vital Signs Temperature 98.4 F 04/27/18 14:00 Pulse Rate 87 04/27/18 14:00 Respiratory Rate 18 04/27/18 14:00 Blood Pressure 133/82 04/27/18 14:00 O2 Sat by Pulse Oximetry (%) 97 04/27/18 14:00 Constitutional: Yes: No Distress, Calm Cardiovascular: Yes: Regular Rate and Rhythm Respiratory: Yes: Regular, CTA Bilaterally Gastrointestinal: Yes: Normal Bowel Sounds, Soft Musculoskeletal: Yes: WNL Extremities: Yes: WNL Wound/Incision: Yes: Clean/Dry Neurological: Yes: Alert, Oriented Psychiatric: Yes: Alert, Oriented Labs: CBC, BMP 04/26/18 07:29 04/26/18 07:29 INR, PTT INR 1.22 (0.82-1.09) 04/25/18 22:45 Assessment/Plan 37-year old male with PMH significant for spinal fusion surgery and polysubstance abuse (opioids, cocaine, marijuana). Presented to ED with complaint of right buttock pain following a naltrexone IM shot one week ago. Admitted for right buttock hematoma, likely infected. Right buttock hematoma Polysubstance abuse leukocytosis erythema of the buttocks plan continue abx await for cx reports rest as per the team improving
[2018-04-28] MEDS ORDERED: PIPERACILLIN/TAZOBACTAM 3.375 GM VIAL IVPB ONE ×2 (01:49→12:08)
[2018-04-28] MEDS ORDERED: DEXTROSE 5%-WATER - 50 ML IVPB ONE ×2 (01:49→12:08)
[2018-04-28] MEDS: PIPERACILLIN/TAZOB 3.375 GM 3.375 GM in DEXTROSE 5%-WATER - 50 ML IVPB SCH ×3 (01:59→18:30)
[2018-04-28 09:12] LABS: BASO % 0.2 % (0-2.0); EOS % 2.1 % (0-4.5); HEMATOCRIT 45.1 % (35.4-49); HEMOGLOBIN 15.2 GM/dl (11.7-16.9); LYMPH % 17.1 % (8-40); MCHC 33.8 g/dl (32.0-35.9); MEAN CELL VOLUME 94.6 fl (80-96); MEAN PLT VOLUME 8.6 fl (7.5-11.1); MONO % 6.6 % (3.8-10.2); PLATELET COUNT 452 K/MM3 (134-434); RBC 4.76 M/mm3 (4.00-5.60); RDW 12.1 % (11.9-15.9); WHITE BLOOD COUNT 9.4 K/mm3 (4.0-10.8)
[2018-04-28 09:49] LABS: ALBUMIN 3.5 g/dl (3.4-5.0); ALK PHOS 55 U/L (45-117); ANION GAP 6 MMOL/L (8-16); BILIRUBIN,TOTAL 0.6 mg/dl (0.2-1); BLOOD UREA NITROGEN 8 mg/dl (7-18); CALCIUM 9.3 mg/dl (8.5-10); CHLORIDE 104 mmol/L (98-107); CO2 29 mmol/L (21-32); CREATININE 0.8 mg/dl (0.55-1.3); GLUCOSE,RANDOM 92 mg/dl (74-106); MAGNESIUM 1.9 mg/dL (1.8-2.4); POTASSIUM 4.6 mmol/L (3.5-5.1); SGOT/AST 21 U/L (15-37); SGPT/ALT 24 U/L (13-61); SODIUM 139 mmol/L (136-145); TOT PROT 6.6 g/dl (6.4-8.2)
--- NOTE | 2018-04-28 10:35 | PN ---
Physical Exam: SUBJECTIVE: Patient seen and examined. Continues to feel well, able to lie flat on back, very little pain. OBJECTIVE: Vital Signs Period Temp Pulse Resp BP Sys/Lou Pulse Ox Last 24 Hr 97.8 F-98.6 F 71-87 15-21 118-137/67-88 97-100 GENERAL: Awake, alert, and fully oriented, in no acute distress. LUNGS: Breath sounds equal, clear to auscultation bilaterally. No wheezes, and no crackles. No accessory muscle use. HEART: Regular rate and rhythm, normal S1 and S2 without murmur, rub or gallop. ABDOMEN: Soft, nontender, not distended, normoactive bowel sounds, no guarding, no rebound, no masses. No hepatomegaly or splenomegaly. MUSCULOSKELETAL: Normal range of motion at all joints. No bony deformities or tenderness. No CVA tenderness. UPPER EXTREMITIES: 2+ pulses, warm, well-perfused. No cyanosis. No clubbing. No peripheral edema. LOWER EXTREMITIES: 2+ pulses, warm, well-perfused. No calf tenderness. No peripheral edema. NEUROLOGICAL: Cranial nerves II-XII intact. Normal speech. SKIN: RIGHT BUTTOCK: small sterile gauze over aspiration site, c/d/i; area superior to the gauze is more indurated and warm today and increased tenderness Laboratory Results - last 24 hr 04/28/18 04/28/18 08:00 08:00 WBC 9.4 RBC 4.76 Hgb 15.2 Hct 45.1 MCV 94.6 MCH 32.0 MCHC 33.8 RDW 12.1 Plt Count 452 H MPV 8.6 Absolute Neuts (auto) 7.0 Neutrophils % 74.0 Lymphocytes % 17.1 D Monocytes % 6.6 Eosinophils % 2.1 D Basophils % 0.2 Sodium 139 Potassium 4.6 Chloride 104 Carbon Dioxide 29 Anion Gap 6 L BUN 8 Creatinine 0.8 Creat Clearance w eGFR > 60 Random Glucose 92 Calcium 9.3 Magnesium 1.9 Total Bilirubin 0.6 AST 21 ALT 24 Alkaline Phosphatase 55 Total Protein 6.6 Albumin 3.5 Active Medications Generic Name Dose Route Start Last Admin Trade Name Freq PRN Reason Stop Dose Admin Acetaminophen 650 mg 04/26/18 02:28 04/26/18 03:30 Tylenol - PO 650 mg Q4H PRN Administration PAIN LEVEL 1-5 Acetaminophen 1,000 mg 04/26/18 10:23 04/27/18 02:51 Ofirmev Injection - IVPB 1,000 mg Q6H PRN Administration PAIN LEVEL 1-5 Piperacillin Sod/Tazobactam 50 mls @ 100 mls/hr 04/26/18 18:00 04/28/18 01:59 Sod 3.375 gm/ Dextrose IVPB 100 mls/hr Q8H-IV KANIKA Administration Protocol ASSESSMENT/PLAN 37-year old male with PMH significant for spinal fusion surgery and polysubstance abuse (opioids, cocaine, marijuana). Presented to ED with complaint of right buttock pain following a naltrexone IM shot one week ago. Admitted for right buttock hematoma, likely infected. Right buttock hematoma s/p naltraxone injection --WBC trended to wnl --04/25 CT: 10 x 4.4 x 4 cm bilobed structure within right gluteus malena muscle consistent with hematoma, possible superinfection --aspiration >100cc's sanguinous fluid by IR on 04/27 --continue Zosyn, ID following --waiting for culture and sensitivities Polysubstance abuse --undergoing naltraxone therapy as outpatient --discussed pain management with Dr. Molina; tylenol and motrin only FEN Fluids: PO intake adequate Electrolytes: replete as indicated Nutrition: regular diet DVT prophylaxis: SCDs, oob, ambulation Dispo: continues to require inpatient care. Full code. Visit type - Emergency Visit Emergency Visit: Yes ED Registration Date: 04/26/18 Care time: The patient presented to the Emergency Department on the above date and was hospitalized for further evaluation of their emergent condition. - New Patient This patient is new to me today: No - Critical Care Critical Care patient: No
--- NOTE | 2018-04-28 15:33 | PN ---
Progress Note, Physician History of Present Illness: feels much better wbc has normalized - Current Medication List Current Medications: Active Medications Acetaminophen (Tylenol -) 650 mg PO Q4H PRN PRN Reason: PAIN LEVEL 1-5 Last Admin: 04/26/18 03:30 Dose: 650 mg Acetaminophen (Ofirmev Injection -) 1,000 mg IVPB Q6H PRN PRN Reason: PAIN LEVEL 1-5 Last Admin: 04/27/18 02:51 Dose: 1,000 mg Piperacillin Sod/Tazobactam (Sod 3.375 gm/ Dextrose) 50 mls @ 100 mls/hr IVPB Q8H-IV KANIKA; Protocol Last Admin: 04/28/18 10:10 Dose: 100 mls/hr - Objective Vital Signs: Vital Signs Temperature 98.8 F 04/28/18 14:13 Pulse Rate 76 04/28/18 14:13 Respiratory Rate 18 04/28/18 14:13 Blood Pressure 114/66 04/28/18 14:13 O2 Sat by Pulse Oximetry (%) 96 04/28/18 14:13 Constitutional: Yes: No Distress, Calm Cardiovascular: Yes: Regular Rate and Rhythm Respiratory: Yes: Regular, CTA Bilaterally Gastrointestinal: Yes: Normal Bowel Sounds, Soft ...Rectal Exam: Yes: Other (gluteal pain much better) Musculoskeletal: Yes: WNL Extremities: Yes: WNL Neurological: Yes: Alert, Oriented Psychiatric: Yes: Alert, Oriented Labs: CBC, BMP 04/28/18 08:00 04/28/18 08:00 INR, PTT INR 1.22 (0.82-1.09) 04/25/18 22:45 Assessment/Plan 37-year old male with PMH significant for spinal fusion surgery and polysubstance abuse (opioids, cocaine, marijuana). Presented to ED with complaint of right buttock pain following a naltrexone IM shot one week ago. Admitted for right buttock hematoma, likely infected. Right buttock hematoma Polysubstance abuse leukocytosis erythema of the buttocks plan continue abx await for cx reports rest as per the team improving
[2018-04-29] MEDS ORDERED: PIPERACILLIN/TAZOBACTAM 3.375 GM VIAL IVPB ONE ×2 (02:02→08:48)
[2018-04-29] MEDS ORDERED: MAG HYDROX/AL HYDROX/SIMETH 30 ML UNIT-DOSE CUP PO ONE (02:02)
[2018-04-29] MEDS ORDERED: ONDANSETRON 4 MG/2 ML VIAL IVPUSH ONE (02:02)
[2018-04-29] MEDS ORDERED: DEXTROSE 5%-WATER - 50 ML IVPB ONE ×2 (02:03→08:49)
[2018-04-29] MEDS: PIPERACILLIN/TAZOB 3.375 GM 3.375 GM in DEXTROSE 5%-WATER - 50 ML IVPB SCH ×2 (02:05→09:08)
[2018-04-29] MEDS ORDERED: MAG HYDROX/AL HYDROX/SIMETH 30 ML UNIT-DOSE CUP ONE (02:10)
[2018-04-29] MEDS ORDERED: ONDANSETRON 4 MG/2 ML VIAL ONE (02:10)
[2018-04-29 10:23] LABS: HEMOGLOBIN 14.3 GM/dl (11.7-16.9); MCH 31.3 pg (25.7-33.7); MCHC 33.2 g/dl (32.0-35.9); MEAN CELL VOLUME 94.3 fl (80-96); MEAN PLT VOLUME 8.2 fl (7.5-11.1); PLATELET COUNT 437 K/MM3 (134-434); RBC 4.56 M/mm3 (4.00-5.60); RDW 12.3 % (11.9-15.9); WHITE BLOOD COUNT 7.8 K/mm3 (4.0-10.8)
[2018-04-29 10:39] LABS: ALBUMIN 3.4 g/dl (3.4-5.0); ALK PHOS 53 U/L (45-117); ANION GAP 5 MMOL/L (8-16); BILIRUBIN,TOTAL 0.7 mg/dl (0.2-1); BLOOD UREA NITROGEN 9 mg/dl (7-18); CALCIUM 9.1 mg/dl (8.5-10); CHLORIDE 103 mmol/L (98-107); CO2 28 mmol/L (21-32); CREATININE 0.8 mg/dl (0.55-1.3); GLUCOSE,RANDOM 86 mg/dl (74-106); POTASSIUM 4.1 mmol/L (3.5-5.1); SGOT/AST 20 U/L (15-37); SGPT/ALT 21 U/L (13-61); SODIUM 136 mmol/L (136-145)
--- NOTE | 2018-04-29 10:42 | PN ---
Progress Note, Physician History of Present Illness: Pt is alert and reports less pain. Afebrile and without specific complaints. - Current Medication List Current Medications: Active Medications Acetaminophen (Tylenol -) 650 mg PO Q4H PRN PRN Reason: PAIN LEVEL 1-5 Last Admin: 04/26/18 03:30 Dose: 650 mg Acetaminophen (Ofirmev Injection -) 1,000 mg IVPB Q6H PRN PRN Reason: PAIN LEVEL 1-5 Last Admin: 04/27/18 02:51 Dose: 1,000 mg Piperacillin Sod/Tazobactam (Sod 3.375 gm/ Dextrose) 50 mls @ 100 mls/hr IVPB Q8H-IV KANIKA; Protocol Last Admin: 04/29/18 09:08 Dose: 100 mls/hr - Objective Vital Signs: Vital Signs Temperature 97.9 F 04/29/18 07:52 Pulse Rate 64 04/29/18 07:52 Respiratory Rate 18 04/29/18 07:52 Blood Pressure 121/73 04/29/18 07:52 O2 Sat by Pulse Oximetry (%) 99 04/29/18 07:52 Constitutional: Yes: No Distress, Calm Cardiovascular: Yes: Regular Rate and Rhythm Respiratory: Yes: Regular Gastrointestinal: Yes: Normal Bowel Sounds, Soft Extremities: Yes: WNL Wound/Incision: Yes: Dressing Dry and Intact Neurological: Yes: Alert Labs: CBC, BMP 04/29/18 10:10 INR, PTT INR 1.22 (0.82-1.09) 04/25/18 22:45 Microbiology 04/26/18 01:05 Blood - Peripheral Venous Blood Culture - Preliminary NO GROWTH OBTAINED AFTER 72 HOURS, INCUBATION TO CONTINUE FOR 2 DAYS. 04/26/18 01:15 Blood - Peripheral Venous Blood Culture - Preliminary NO GROWTH OBTAINED AFTER 72 HOURS, INCUBATION TO CONTINUE FOR 2 DAYS. 04/27/18 13:30 Abscess Gram Stain - Final Assessment/Plan Rt gluteal hematoma/possible abscess s/p drainage -- leukocytosis resolved -- follow up wound culture results prior to switch to oral antibiotics
--- NOTE | 2018-04-29 11:03 | PN ---
Physical Exam: SUBJECTIVE: Patient seen and examined, pt requesting to be discharged, informed waiting for wound culture results, pt in agreement to stay. denies pain, sob, OBJECTIVE: Vital Signs Period Temp Pulse Resp BP Sys/Lou Pulse Ox Last 24 Hr 97.9 F-99.3 F 64-84 16-18 108-132/56-83 96-99 GENERAL: The patient is awake, alert, and fully oriented, in no acute distress. HEAD: Normal with no signs of trauma. EYES: PERRL, extraocular movements intact, sclera anicteric, conjunctiva clear. No ptosis. ENT: Ears normal, nares patent, oropharynx clear without exudates, moist mucous membranes. NECK: Trachea midline, full range of motion, supple. LUNGS: Breath sounds equal, clear to auscultation bilaterally, no wheezes, no crackles, no accessory muscle use. HEART: Regular rate and rhythm, S1, S2 without murmur, rub or gallop. ABDOMEN: Soft, nontender, nondistended, normoactive bowel sounds, no guarding, no rebound, no hepatosplenomegaly, no masses. EXTREMITIES: 2+ pulses, warm, well-perfused, no edema. NEUROLOGICAL: Cranial nerves II through XII grossly intact. Normal speech, gait not observed. PSYCH: Normal mood, normal affect. SKIN: Warm, dry, normal turgor, no rashes or lesions noted Laboratory Results - last 24 hr 04/29/18 04/29/18 10:10 10:10 WBC 7.8 RBC 4.56 Hgb 14.3 Hct 43.0 MCV 94.3 MCH 31.3 MCHC 33.2 RDW 12.3 Plt Count 437 H MPV 8.2 Sodium 136 Potassium 4.1 Chloride 103 Carbon Dioxide 28 Anion Gap 5 L BUN 9 Creatinine 0.8 Creat Clearance w eGFR > 60 Random Glucose 86 Calcium 9.1 Total Bilirubin 0.7 AST 20 ALT 21 Alkaline Phosphatase 53 Total Protein 7.0 Albumin 3.4 Active Medications Generic Name Dose Route Start Last Admin Trade Name Freq PRN Reason Stop Dose Admin Acetaminophen 650 mg 04/26/18 02:28 04/26/18 03:30 Tylenol - PO 650 mg Q4H PRN Administration PAIN LEVEL 1-5 Acetaminophen 1,000 mg 04/26/18 10:23 04/27/18 02:51 Ofirmev Injection - IVPB 1,000 mg Q6H PRN Administration PAIN LEVEL 1-5 Piperacillin Sod/Tazobactam 50 mls @ 100 mls/hr 04/26/18 18:00 04/29/18 09:08 Sod 3.375 gm/ Dextrose IVPB 100 mls/hr Q8H-IV KANIKA Administration Protocol ASSESSMENT/PLAN: 37-year old male with PMH significant for spinal fusion surgery and polysubstance abuse (opioids, cocaine, marijuana). Presented to ED with complaint of right buttock pain following a naltrexone IM shot one week ago. Admitted for right buttock hematoma, likely infected. Right buttock hematoma s/p naltraxone injection --WBC trended to wnl --04/25 CT: 10 x 4.4 x 4 cm bilobed structure within right gluteus malena muscle consistent with hematoma, possible superinfection --aspiration >100cc's sanguinous fluid by IR on 04/27 --continue Zosyn, ID following --waiting for culture and sensitivities Polysubstance abuse --undergoing naltraxone therapy as outpatient --discussed pain management with Dr. Molina; tylenol and motrin only FEN Fluids: PO intake adequate Electrolytes: replete as indicated Nutrition: regular diet DVT prophylaxis: SCDs, oob, ambulation Dispo: continues to require inpatient care. Full cod Visit type - Emergency Visit Emergency Visit: Yes ED Registration Date: 04/26/18 Care time: The patient presented to the Emergency Department on the above date and was hospitalized for further evaluation of their emergent condition. - New Patient This patient is new to me today: Yes Date on this admission: 04/29/18 - Critical Care Critical Care patient: No
[2018-04-29] MEDS ORDERED: NICOTINE 7 MG/24 HOURS TOPICAL PATCH TD SCH (11:15)
--- NOTE | 2018-04-29 15:30 | DS ---
Physical Exam: SUBJECTIVE: Patient requesting to be discharged, informed will be against medical advice. pt explained risks and benefits, of leaving, pt does not want to wait for wound cultures. paged ID, discussed with Dr. Grove, will prescribe Augmentin 875/125mg BID x 5 days. pt advised to find PCP. go to nearest ER if he develops fever, pain at site, drainage, bleeding OBJECTIVE: Vital Signs Period Temp Pulse Resp BP Sys/Lou Pulse Ox Last 24 Hr 97.9 F-99.3 F 64-84 16-18 103-132/56-83 97-99 PHYSICAL EXAM GENERAL: The patient is awake, alert, and fully oriented, in no acute distress. HEAD: Normal with no signs of trauma. EYES: PERRL, extraocular movements intact, sclera anicteric, conjunctiva clear. ENT: Ears normal, nares patent, oropharynx clear without exudates, moist mucous membranes. NECK: Trachea midline, full range of motion, supple. LUNGS: Breath sounds equal, clear to auscultation bilaterally, no wheezes, no crackles, no accessory muscle use. HEART: Regular rate and rhythm, S1, S2 without murmur, rub or gallop. ABDOMEN: Soft, nontender, nondistended, normoactive bowel sounds, no guarding, no rebound, no hepatosplenomegaly, no masses. EXTREMITIES: 2+ pulses, warm, well-perfused, no edema. NEUROLOGICAL: Cranial nerves II through XII grossly intact. Normal speech, gait not observed. PSYCH: Normal mood, normal affect. SKIN: Warm, dry, normal turgor, no rashes or lesions noted. LABS Laboratory Results - last 24 hr 04/29/18 04/29/18 10:10 10:10 WBC 7.8 RBC 4.56 Hgb 14.3 Hct 43.0 MCV 94.3 MCH 31.3 MCHC 33.2 RDW 12.3 Plt Count 437 H MPV 8.2 Sodium 136 Potassium 4.1 Chloride 103 Carbon Dioxide 28 Anion Gap 5 L BUN 9 Creatinine 0.8 Creat Clearance w eGFR > 60 Random Glucose 86 Calcium 9.1 Total Bilirubin 0.7 AST 20 ALT 21 Alkaline Phosphatase 53 Total Protein 7.0 Albumin 3.4 HOSPITAL COURSE: Date of Admission:04/26/18 Date of Discharge: 04/29/18 37-year old male with PMH significant for spinal fusion surgery and polysubstance abuse (opioids, cocaine, marijuana). Presented to ED with complaint of right buttock pain following a naltrexone IM shot one week ago. Admitted for right buttock hematoma, likely infected. Right buttock hematoma s/p naltraxone injection --WBC trended to wnl --04/25 CT: 10 x 4.4 x 4 cm bilobed structure within right gluteus malena muscle consistent with hematoma, possible superinfection --aspiration >100cc's sanguinous fluid by IR on 04/27 --continue Zosyn, ID following --waiting for culture and sensitivities Polysubstance abuse --undergoing naltraxone therapy as outpatient --discussed pain management with Dr. Molina; tylenol and motrin only Minutes to complete discharge: 30 Discharge Summary Reason For Visit: ABSCESS OF RIGHT BUTTOCK Current Active Problems Abscess of right buttock (Acute) - Instructions Diet, Activity, Other Instructions: You indicated you would like to continue Vivitrol therapy. Please call the Opioid Treatment Program located at [address] [place] [address] at [phone]. Alternatively, call [facility], at the same address, at [phone]. 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 if you develop fever, pain, drainage from wound, go to nearest ED - Home Medications Comprehensive Discharge Medication List: Ambulatory Orders Naltrexone Microspheres [Vivitrol] 380 mg IM MONTHLY 04/25/18 Amoxicillin/Potassium Clav [Augmentin 875-125 Tablet] 1 each PO BID 5 Days #10 tablet 04/29/18 This patient is new to me today: Yes Date on this admission: 04/29/18 Emergency Visit: Yes ED Registration Date: 04/26/18 Care time: The patient presented to the Emergency Department on the above date and was hospitalized for further evaluation of their emergent condition. Critical Care patient: No - Discharge Referral Referred to [facility] Med P.C.: No
[2018-04-30 18:20] VITALS: BP 103/69; PULSE 69; TEMP 98.1
== END 2018-04-29 16:11 | disposition home or self-care (01) | DRG 603 ==
LOC: FER 21:11 → FM/S 04-26 02:07 → UNDOADMIN 04-26 02:19 → JSAMEDAYSX 04-27 09:02 → FM/S 04-27 13:38
PROVIDERS: ADMIT Internal Medicine; ATTEND Nurse Practitioner Acute Care
PROC: 0J9930Z Drainage of Buttock Subcutaneous Tissue and Fascia with Drainage Device, Percutaneous Approach (ICD-10-PCS; principal; 2018-04-27)
DX: L02.31 Cutaneous abscess of buttock (principal); F14.10 Cocaine abuse, uncomplicated; F11.10 Opioid abuse, uncomplicated; F12.10 Cannabis abuse, uncomplicated; F17.210 Nicotine dependence, cigarettes, uncomplicated; D72.829 Elevated white blood cell count, unspecified
CPT/HCPCS: 10030; 36415; 73701-TC-RT; 76098-TC-FY; 76998-TC; 80048; 80053; 83735; 85025; 85027; 85610; 85651; 87040; 87070; 87075; 87102; 87116; 87205; 87206; 87210; 87899; 99281-25; C1729; C1769; J0131; J7030

== ENCOUNTER 2018-08-09 09:13 | Emergency (ER) | payer OTHER ==
[2018-08-09 09:25] VITALS: BMI 21.7
[2018-08-09] MEDS ORDERED: FAMOTIDINE 20 MG/50 ML IVPB 20 MG/50 ML MG IVPB ONE ×2 (10:19→10:41)
[2018-08-09] MEDS ORDERED: SODIUM CHLORIDE 0.9% 1000 ML INFUS.BAG IV ONE (10:19)
[2018-08-09] MEDS ORDERED: ONDANSETRON 4 MG/2 ML VIAL IVPUSH ONE ×2 (10:19→14:37)
--- NOTE | 2018-08-09 10:24 | PDOC ---
History of Present Illness - General Chief Complaint: Substance Abuse Stated Complaint: WITHDRAWAL History Source: Patient Exam Limitations: No Limitations - History of Present Illness Initial Comments: 08/09/18 10:21 37-year-old male history of opiate addiction here today complaining of opiate withdrawal symptoms. Patient states his last Percocet was 5 days ago. In the past he had received outpatient treatment for addiction with Vivitrol shots which she was getting monthly in [place]. Mary Carmen suffered from a complication of the injection with a gluteal abscess and so he stopped receiving the shot. States he had a relapse was taking Percocets but would like to stay clean. Initially after his last dose had nausea vomiting and diarrhea. The diarrhea has since subsided but he has persistent vomiting and is complaining of epigastric pain. He states feeling lightheaded denies any fevers and chills pain is described as a burning sensation no radiation no previous abdominal surgeries no fevers chills no urinary complaints has thrown up too many times to count Past History - Past Medical History Allergies/Adverse Reactions: Allergies Allergy/AdvReac Type Severity Reaction Status Date / Time No Known Allergies Allergy Verified 04/25/18 21:12 Home Medications: Ambulatory Orders Oxycodone HCl/Acetaminophen [Percocet 10-325 mg Tablet] 1 each PO TID 08/09/18 COPD: No DVT: No - Suicide/Smoking/Psychosocial Hx Smoking Status: No Smoking History: Never smoked Have you smoked in the past 12 months: No Number of Cigarettes Smoked Daily: 3 'Breaking Loose' booklet given: 04/26/18 Hx Alcohol Use: Yes (PERCOCET) Drug/Substance Use Hx: No Substance Use Type: Alcohol, Opiates Hx Substance Use Treatment: No Review of Systems - Review of Systems Constitutional: No: Chills, Diaphoresis HEENTM: No: Eye Pain, Blurred Vision Respiratory: No: Cough, Orthopnea Cardiac (ROS): No: Chest Pain ABD/GI: Yes: Diarrhea, Nausea, Vomiting : No: Burning, Dysuria Integumentary: No: Bruising, Change in Color All Other Systems: Reviewed and Negative *Physical Exam - Vital Signs Last Vital Signs Temp Pulse Resp BP Pulse Ox 97.1 F L 85 20 121/79 99 08/09/18 09:14 08/09/18 09:14 08/09/18 09:14 08/09/18 09:14 08/09/18 09:14 - Physical Exam Comments: 08/09/18 10:23 Awake alert notes distress lungs are clear bilaterally heart is regular with any murmurs rubs or gallops abdomen is soft nontender nondistended extremities are warm and well-perfused. Neurologically the patient is alert and oriented 3 speech is clear moving all 4 extremities. Skin is warm and dry ED Treatment Course - LABORATORY CBC & Chemistry Diagram: 08/09/18 10:28 08/09/18 10:28 Medical Decision Making - Medical Decision Making 08/09/18 10:23 37-year-old male history of opiate abuse here withdrawal symptoms. Persistent nausea and vomiting. Nontender abdominal exam. Differential includes dehydration, electrolyte abnormality, pancreatitis, hypokalemia renal failure. Plan treat with antiemetics IV fluids we'll check basic labs including CBC CMP and lipase as well as UA and U tox reassess will refer patient to [facility] for further detox treatment 08/09/18 14:36 pt with liver hemangiomas. otherwise unremarkable us. labs noted for mild bilirubin elevation 2.5 LfT otherwise normal. no h/o similar in the past. wbc mild elevation. no anemia. pt with recurrent nausea. will given another dose of zofran. *DC/Admit/Observation/Transfer Diagnosis at time of Disposition: Opiate withdrawal - Discharge Dispostion Disposition: HOME Condition at time of disposition: Improved - Referrals - Patient Instructions Printed Discharge Instructions: Opioid Addiction, Getting Treatment for Drug Addiction Additional Instructions: you can take zofran 4 mg every 6 hrs as needed for nausea or vomiting. if you would like to seek help for your addiction, you can seek detox at [address] [phone]. you can go to intake for evaluation. I looked up list of providers that use Vivotrol injections in this area as a part of rehab / detox and found the following from [employer] [facility]. [address] [facility] [address] [facility] [address] [facility] [id number] [facility] [address] [place] [address] [phone] [facility] [address] [place] [phone] it is recommended that you complete detox, and will likely require trial of other medications prior to recieving this medication as it require monitoring. - Post Discharge Activity
[2018-08-09] MEDS ORDERED: ACETAMINOPHEN INJECTION 100 ML IVPB ONE (10:41)
[2018-08-09] MEDS ORDERED: KETOROLAC TROMETHAMINE 15 MG/ML VIAL ONE (10:41)
[2018-08-09] MEDS ORDERED: ONDANSETRON 4 MG/2 ML VIAL ONE ×2 (10:41→14:43)
[2018-08-09] MEDS ORDERED: ACETAMINOPHEN 1000 MG/100 ML VIAL (NON FORMULARY) IVPB ONE (10:42)
[2018-08-09] MEDS ORDERED: KETOROLAC TROMETHAMINE 15 MG/ML VIAL IVPUSH ONE (10:42)
[2018-08-09 10:59] LABS: BASO % 0.5 % (0-2.0); HEMATOCRIT 50.1 % (35.4-49); MCH 31.3 pg (25.7-33.7); MCHC 33.9 g/dl (32.0-35.9); MEAN CELL VOLUME 92.3 fl (80-96); MEAN PLT VOLUME 8.4 fl (7.5-11.1); MONO % 5.3 % (3.8-10.2); NEUT % 72.2 % (42.8-82.8); PLATELET COUNT 434 K/MM3 (134-434); RBC 5.43 M/mm3 (4.00-5.60); RDW 13.2 % (11.9-15.9); WHITE BLOOD COUNT 11.2 K/mm3 (4.0-10.8)
[2018-08-09 11:00] LABS: ALBUMIN 4.9 g/dl (3.4-5.0); BILIRUBIN,TOTAL 2.5 mg/dl (0.2-1); CALCIUM 10.5 mg/dl (8.5-10); CREATININE 0.8 mg/dl (0.55-1.3); TOT PROT 9.3 g/dl (6.4-8.2)
[2018-08-09 12:35] LABS: URINE MUCUS 2+
[2018-08-09 12:59] LABS: COCAINE, UR NEGATIVE ng/ml (CUTOFF=300); METHADONE, UR NEGATIVE ng/ml (CUTOFF=300); OPIATES, URI NEGATIVE ng/ml (CUTOFF=300); PHENCYCLIDINE,URINE NEGATIVE ng/ml (CUTOFF=25); URINE AMPHETAMINES NEGATIVE ng/ml (CUTOFF=500); URINE BARBITURATES NEGATIVE ng/ml (CUTOFF=200)
[2018-08-09 13:07] LABS: URINE BENZODIAZEPINES POSITIVE ng/ml (CUTOFF=200)
[2018-08-09 14:27] VITALS: BP 138/97; PULSE 65; TEMP 98.5
== END 2018-08-09 15:20 | disposition home or self-care (01) ==
LOC: FER 09:13
PROC: 3E0337Z Introduction of Electrolytic and Water Balance Substance into Peripheral Vein, Percutaneous Approach (ICD-10-PCS; principal; 2018-08-09)
PROC: 3E033NZ Introduction of Analgesics, Hypnotics, Sedatives into Peripheral Vein, Percutaneous Approach (ICD-10-PCS; 2018-08-09)
PROC: 3E0333Z Introduction of Anti-inflammatory into Peripheral Vein, Percutaneous Approach (ICD-10-PCS; 2018-08-09)
PROC: 3E033GC Introduction of Other Therapeutic Substance into Peripheral Vein, Percutaneous Approach (ICD-10-PCS; 2018-08-09)
DX: F11.23 Opioid dependence with withdrawal (principal)
CPT/HCPCS: 36415; 76705-TC; 80053; 80307; 81003; 81015; 83690; 85025; 99283-25; J0131; J7030

== ENCOUNTER 2018-12-19 19:33 | Emergency (ER) | payer OTHER ==
[2018-12-19 19:39] VITALS: BMI 22.7
[2018-12-19] MEDS ORDERED: ONDANSETRON 4 MG/2 ML VIAL ONE ×2 (19:50→20:37)
[2018-12-19] MEDS ORDERED: SODIUM CHLORIDE 1,000 ML IV STA (19:51)
[2018-12-19] MEDS ORDERED: ONDANSETRON 4 MG/2 ML VIAL IVPUSH ONE ×2 (19:51→20:37)
[2018-12-19] MEDS ORDERED: ACETAMINOPHEN 1000 MG/100 ML VIAL (NON FORMULARY) IVPB ONE (19:54)
[2018-12-19] MEDS ORDERED: ACETAMINOPHEN INJECTION 100 ML IVPB ONE (19:57)
[2018-12-19 20:12] LABS: BASO % 0.4 % (0-2.0); EOS % 0.2 % (0-4.5); HEMOGLOBIN 16.8 GM/dl (11.7-16.9); MCH 31.8 pg (25.7-33.7)
[2018-12-19 20:16] LABS: HEMATOCRIT 48.7 % (35.4-49); LYMPH % 18.5 % (8-40); MCHC 34.4 g/dl (32.0-35.9); MEAN CELL VOLUME 92.5 fl (80-96); MEAN PLT VOLUME 8.4 fl (7.5-11.1); NEUT % 76.9 % (42.8-82.8); PLATELET COUNT 457 K/MM3 (134-434); RBC 5.27 M/mm3 (4.00-5.60); RDW 12.3 % (11.9-15.9); WHITE BLOOD COUNT 15.3 K/mm3 (4.0-10.8)
[2018-12-19 20:26] LABS: ALBUMIN 4.8 g/dl (3.4-5.0); CALCIUM 10.2 mg/dl (8.5-10); CREATININE 0.8 mg/dl (0.55-1.3); POTASSIUM 3.8 mmol/L (3.5-5.1); TOT PROT 8.3 g/dl (6.4-8.2)
[2018-12-19] MEDS ORDERED: METOCLOPRAMIDE HCL INJECTION 10 MG/2 ML VIAL IVPB ONE (22:28)
[2018-12-19] MEDS ORDERED: METOCLOPRAMIDE HCL INJECTION 10 MG/2 ML VIAL ONE (22:29)
[2018-12-19 22:41] VITALS: BP 140/98; PULSE 89; TEMP 97.9
[2018-12-19] MEDS ORDERED: KETOROLAC TROMETHAMINE 30 MG/1 ML VIAL IVPUSH ONE (23:00)
[2018-12-19] MEDS ORDERED: KETOROLAC TROMETHAMINE 30 MG/1 ML VIAL ONE (23:10)
--- NOTE | 2018-12-20 00:34 | PDOC ---
Documentation entered by Danna Sadler SCRIBE, acting as scribe for Brianda Starkey MD. Brianda Starkey MD: This documentation has been prepared by the Viktoriya hanks Renju, SCRIBE, under my direction and personally reviewed by me in its entirety. I confirm that the documentation accurately reflects all work, treatment, procedures, and medical decision making performed by me. History of Present Illness - General Chief Complaint: Vomiting/Diarrhea Stated Complaint: N/V/D Time Seen by Provider: 12/19/18 19:42 History Source: Patient Exam Limitations: No Limitations - History of Present Illness Initial Comments: 12/19/18 20:52 The patient is a 37 year old male with a past medical history of opiate addiction and spinal fusion (4 years ago) who presents to the emergency department for evaluation of epigastric pain. Patient reports 4 days of epigastric abdominal pain. He reports associated symptoms of lightheadedness, diarrhea, decreased PO tolerance, nausea, and multiple episodes of non bloody emesis today. He states he has been trying to wean himself off of using percocet , stating he last took percocet on Tuesday for his back pain. The patient denies chest pain, swelling of lower extremities, sick contact, shortness of breath, headache, fever, chills, hematochezia, and constipation. Denies urinary frequency/urgency, dysuria, and hematuria. Allergies: No known allergies Social History: 1/3 ppd cigarette smoking reported. No reported EtOH or illicit use. Surgical History: Lumbar, spinal fusion Past History - Past Medical History Allergies/Adverse Reactions: Allergies Allergy/AdvReac Type Severity Reaction Status Date / Time No Known Allergies Allergy Verified 12/19/18 19:35 Home Medications: Ambulatory Orders Ondansetron [Zofran *Odt*] 4 mg SL BID PRN #10 od.tablet 12/19/18 COPD: No DVT: No - Suicide/Smoking/Psychosocial Hx Smoking Status: No Smoking History: Current every day smoker Have you smoked in the past 12 months: No Number of Cigarettes Smoked Daily: 10 Information on smoking cessation initiated: Yes 'Breaking Loose' booklet given: 08/09/18 Hx Alcohol Use: Yes (OCASIONAL) Drug/Substance Use Hx: Yes (PERCOCET) Substance Use Type: Alcohol, Opiates Hx Substance Use Treatment: No Review of Systems - Review of Systems Able to Perform ROS?: Yes Comments:: 12/19/18 20:52 All systems are reviewed and negative except as noted in the HPI. *Physical Exam - Vital Signs Last Vital Signs Temp Pulse Resp BP Pulse Ox 98.6 F 93 H 18 142/99 100 12/19/18 19:34 12/19/18 19:34 12/19/18 19:34 12/19/18 19:34 12/19/18 19:34 - Physical Exam Comments: 12/19/18 20:52 GENERAL: The patient is awake, alert, and fully oriented, in no acute distress. HEAD: Normal with no signs of trauma. EYES: Pupils equal, round and reactive to light, extraocular movements intact, sclera anicteric, conjunctiva clear with no pallor. ENT: (+)Dry mucous membranes. Ears normal, nares patent, oropharynx clear without exudates. NECK: Normal range of motion, supple without lymphadenopathy, JVD, or masses. LUNGS: Breath sounds equal, clear to auscultation bilaterally. No wheeze/ crackles. HEART: Regular rate and rhythm, normal S1 and S2 without murmur or rub. ABDOMEN: (+)Mild epigastric tenderness without rebound or involuntary guarding. EXTREMITIES: Normal range of motion, no edema. No clubbing or cyanosis. No cords, erythema, or tenderness. NEUROLOGICAL: Cranial nerves II through XII grossly intact. Normal speech, normal gait. PSYCH: Normal mood, normal affect. SKIN: Warm, Dry, normal turgor, no rashes or lesions noted. ED Treatment Course - LABORATORY CBC & Chemistry Diagram: 12/19/18 19:55 12/19/18 19:55 - ADDITIONAL ORDERS Additional order review: Laboratory Results 12/19/18 19:55 Sodium 141 Potassium 3.8 Chloride 106 Carbon Dioxide 28 Anion Gap 7 L BUN 12.0 Creatinine 0.8 Est GFR (CKD-EPI)AfAm 133.20 Est GFR (CKD-EPI)NonAf 114.93 Random Glucose 102 Calcium 10.2 H Total Bilirubin 1.0 AST 25 ALT 22 Alkaline Phosphatase 54 Total Protein 8.3 H Albumin 4.8 12/19/18 19:55 RBC 5.27 MCV 92.5 MCHC 34.4 RDW 12.3 MPV 8.4 Neutrophils % 76.9 Lymphocytes % 18.5 Monocytes % 4.0 Eosinophils % 0.2 D Basophils % 0.4 - Medications Given in the ED: ED Medications Discontinued Medications Generic Name Dose Route Start Last Admin Trade Name Long PRN Reason Stop Dose Admin Acetaminophen 1,000 mg 12/19/18 19:54 12/19/18 19:59 Ofirmev Injection - IVPB 12/19/18 19:55 1,000 mg ONCE ONE Administration Ondansetron HCl 4 mg 12/19/18 19:51 12/19/18 19:53 Zofran Injection IVPUSH 12/19/18 19:52 4 mg ONCE ONE Administration Progress Note - Progress Note Progress Note: As noted above, this 37-year-old man with a history of narcotics addiction ( Percocet, that was originally prescribed for back injury) who has been seen in this ER multiple times with symptoms of opioid withdrawal when he attempts to detox at home, presents with a few day history of nausea/vomiting/diarrhea consistent with his usual symptoms of opioid withdrawal. Patient reports last taking Percocet 4 days ago. No history of fever or severe abdominal discomfort (patient usually has some pain during his narcotic withdrawal). No other new symptoms or trauma. Exam as noted. CBC and chemistry profile sent. Patient received a liter normal saline IV and Zofran 4 mg IV. He continued to have nausea after the first dose of Zofran IV and second dose of 4 mg IV given. Acetaminophen IV, 1 g given for pain. Patient subsequently required Reglan 10 mg IVPB for recurrent nausea, as well as Toradol 30 mg IV for abdominal discomfort. Laboratory evaluation notable for elevation of white blood cell count 15,300; he also had mild prerenal azotemia with BUN of 12 and a creatinine of 0.8. No electrolyte abnormality was seen. Patient had significant reduction in his symptoms and requested to be discharged. The patient had been given a list of opiate detox centers when he was last seen here in the ER (July of this year). He apparently is placed was list and it was reproduced for him. He should follow-up at the detox center for full, formal detoxification. Prescription for Zofran ODT 4 mg up to twice a day as needed for nausea (#10) sent to his pharmacy. If he has any worsening of his symptoms prior to being seen for full detoxification, he should return to the ER *DC/Admit/Observation/Transfer Diagnosis at time of Disposition: Opioid withdrawal - Discharge Dispostion Disposition: HOME Condition at time of disposition: Stable - Prescriptions Prescriptions: Ondansetron [Zofran *Odt*] 4 mg SL BID PRN #10 od.tablet PRN Reason: Nausea - Referrals - Patient Instructions Printed Discharge Instructions: DI for Opioid Addiction Additional Instructions: Follow-up referral for opiate detox programs on list as given to you: [facility]. [address] [place] [address] [id number] [facility] outpatient facility [address] [place] [address], [phone] [facility] [address] [place] [address] [phone] [facility] [address] [place] [phone] Zofran ODT 4mg up to twice a day as needed for nausea Return to ER if you have persistent abdominal pain / vomiting or you develop fever - Post Discharge Activity
== END 2018-12-19 23:43 | disposition home or self-care (01) ==
LOC: FER 19:33
PROC: 3E033NZ Introduction of Analgesics, Hypnotics, Sedatives into Peripheral Vein, Percutaneous Approach (ICD-10-PCS; principal; 2018-12-19)
PROC: 3E0333Z Introduction of Anti-inflammatory into Peripheral Vein, Percutaneous Approach (ICD-10-PCS; 2018-12-19)
PROC: 3E0337Z Introduction of Electrolytic and Water Balance Substance into Peripheral Vein, Percutaneous Approach (ICD-10-PCS; 2018-12-19)
DX: F11.23 Opioid dependence with withdrawal (principal)
CPT/HCPCS: 36415; 80053; 83690; 85025; 99282-25; J0131; J7030

== ENCOUNTER 2018-12-21 10:01 | Emergency (ER) | payer OTHER ==
[2018-12-21 10:12] VITALS: BP 126/91; PULSE 102; TEMP 98.6; BMI 23.5
--- NOTE | 2018-12-21 10:29 | PDOC ---
History of Present Illness - General Chief Complaint: Weakness Stated Complaint: WEAK ABDOMINAL CRAMPING SELF WITHDRAWAL FROM PERC Time Seen by Provider: 12/21/18 10:29 - History of Present Illness Initial Comments: 12/21/18 10:43 37yo M Past History - Past Medical History Allergies/Adverse Reactions: Allergies Allergy/AdvReac Type Severity Reaction Status Date / Time No Known Allergies Allergy Verified 12/21/18 10:03 COPD: No DVT: No - Psycho Social/Smoking Cessation Hx Smoking Status: No Smoking History: Current every day smoker Have you smoked in the past 12 months: No Number of Cigarettes Smoked Daily: 7 Information on smoking cessation initiated: Yes 'Breaking Loose' booklet given: 08/09/18 Hx Alcohol Use: Yes (SOCIAL) Drug/Substance Use Hx: Yes (MARIJUANA) Substance Use Type: Alcohol, Opiates Hx Substance Use Treatment: No *Physical Exam - Vital Signs Last Vital Signs Temp Pulse Resp BP Pulse Ox 98.6 F 102 H 16 126/91 99 12/21/18 10:03 12/21/18 10:03 12/21/18 10:03 12/21/18 10:03 12/21/18 10:03 Medical Decision Making - Medical Decision Making 12/21/18 10:45 37yo M hx opiate addiction 2/2 spinal fusion 4 years ago and multiple withdrawal attempts presents c/o epigastric pain and N/V attempting to withdraw from opioids. Pt was here 2 days ago with same sx and pt states the medications they gave him here helped and he just wants them again. Per chart review, pt was given Zofran, Reglan, Toradol, Tylenol, and IVF. CBC and CMP were done at that time. Pt states the sx are exactly the same as prior. Pt has been taking prescribed zofran for nausea (last 399) but no other medications. Pt c/o 1 day of intermittent burning epigastric pain worse with eating better with warm baths , nausea, 4 episodes of NBNB emesis last night, decreased PO tolerance, last BM Tuesday but passing gas. Last ate full meal on Tuesday. Last percocet taken on Tuesday. Pt adamantly refuses rehab facility and wants to withdraw on his own. -Zofran, Pepcid, IV tylenol, 1L NS -No labs indicated at this time due to lab work 2 days ago, reviewed -Dispo: pending reassessment, most likely d/c home 12/21/18 12:39 Pt feels much better s/p IVF, zofran, pepcid, and tylenol. Would like to go home. Alert oriented 3 anxious mild distress due to epigastric pain Impression: Opioid withdrawal, otherwise medically stable. No suggestion of acute abdominal disease Plan: Symptomatic treatment, again recommended formal rehabilitation, follow-up. Patient much improved after symptomatic treatment. Abdominal pain has subsided. He appears completely comfortable, conversant, and in good spirits. Discharged with recommendations for follow-up. Continue Tylenol, Zofran, and Pepcid. Discharge - Discharge Information Problems reviewed: Yes Clinical Impression/Diagnosis: Opioid withdrawal Condition: Improved Disposition: HOME - Admission No - Follow up/Referral Referrals: [facility] [Provider Group] - Patient Discharge Instructions Patient Printed Discharge Instructions: DI for Opioid Addiction Additional Instructions: You have been seen in the Emergency Department for your nausea, vomiting and pain. Your symptoms resolved with Tylenol, Pepcid, Zofran, and hydration. Your symptoms are most likely due to opioid withdrawal. At this time, it's most important to stay hydrated. You already have a prescription for Zofran - take it as prescribed for nausea. You can also take Tylenol and Pepcid for the pain as needed, following the instructions on the bottles - they are both over the counter medications you can tile picker at the pharmacy. Follow-up with your primary care doctor within 1 week. Return to the ED immediately if you experience fever, worsening stomach pain or vomiting, blood in your vomit, chest pain, difficulty breathing, dizziness, or any other new or worsening symptom. Follow-up referral for opiate detox programs: [facility]. [address] [place] [id number] [facility] outpatient facility [address] [place] [address], [phone] [address] [phone] [facility] [address] [place] [phone] - Post Discharge Activity
[2018-12-21] MEDS ORDERED: ONDANSETRON 4 MG/2 ML VIAL IVPUSH ONE (10:42)
[2018-12-21] MEDS ORDERED: SODIUM CHLORIDE 0.9% 500 ML INFUS.BAG IV ONE (10:42)
[2018-12-21] MEDS ORDERED: FAMOTIDINE 20 MG/50 ML IVPB 20 MG/50 ML MG IVPB ONE ×2 (10:42→11:01)
[2018-12-21] MEDS ORDERED: ACETAMINOPHEN 1000 MG/100 ML VIAL (NON FORMULARY) IVPB ONE (10:43)
--- NOTE | 2018-12-21 10:44 | PDOC ---
Attending Attestation - Resident Resident Name: ClaudiaViola - ED Attending Attestation I have performed the following: I have examined & evaluated the patient, The case was reviewed & discussed with the resident, I agree w/resident's findings & plan, Exceptions are as noted - HPI HPI: 12/21/18 13:31 Attempting to withdraw from opioids, refusing rehabilitation facility, complains of epigastric pain, nausea, headache and body aches. Similar symptoms several days ago, treated in the ER with good response. Last opioids approximately 5 days ago. No other significant prior medical or surgical history. - Physicial Exam PE: 12/21/18 13:32 Alert oriented 3 anxious mild distress due to epigastric pain No pallor or icterus PERRLA 3 mm, fundi benign, ENT clear Neck supple without bruit mass or nodes Lungs clear. Breath sounds bilaterally CV regular without murmur rub or gallop Abdomen nondistended. Bowel sounds normal. Soft without mass tenderness organomegaly Neurological C2 to 12 intact. Strength full and symmetric. No focal sensory or motor deficits. Gait stable and unimpaired Extremities no CCE Skin clear, no rash, adequate turgor and wet mucous membranes - Medical Decision Making 12/21/18 13:33 Impression: Opioid withdrawal, otherwise medically stable. No suggestion of acute abdominal disease Plan: Symptomatic treatment, again recommended formal rehabilitation, follow-up. Patient much improved after symptomatic treatment. Abdominal pain has subsided. He appears completely comfortable, conversant, and in good spirits. Discharged with recommendations for follow-up. Continue Tylenol, Zofran, and Pepcid.
[2018-12-21] MEDS ORDERED: ACETAMINOPHEN INJECTION 100 ML IVPB ONE (11:00)
[2018-12-21] MEDS ORDERED: ONDANSETRON 4 MG/2 ML VIAL ONE (11:01)
== END 2018-12-21 12:50 | disposition home or self-care (01) ==
LOC: FER 10:01
PROC: 3E0337Z Introduction of Electrolytic and Water Balance Substance into Peripheral Vein, Percutaneous Approach (ICD-10-PCS; principal; 2018-12-21)
PROC: 3E033NZ Introduction of Analgesics, Hypnotics, Sedatives into Peripheral Vein, Percutaneous Approach (ICD-10-PCS; 2018-12-21)
PROC: 3E033GC Introduction of Other Therapeutic Substance into Peripheral Vein, Percutaneous Approach (ICD-10-PCS; 2018-12-21)
DX: F11.23 Opioid dependence with withdrawal (principal); F17.210 Nicotine dependence, cigarettes, uncomplicated
CPT/HCPCS: 99282-25; J0131

== ENCOUNTER 2019-02-14 18:00 | Emergency (ER) | payer OTHER ==
[2019-02-14 18:18] VITALS: BMI 23.5
[2019-02-14] MEDS ORDERED: ONDANSETRON 4 MG/2 ML VIAL IVPB ONE (18:19)
[2019-02-14] MEDS ORDERED: SODIUM CHLORIDE 1,000 ML IV STA (18:19)
[2019-02-14] MEDS ORDERED: FAMOTIDINE 20 MG/50 ML IVPB 20 MG/50 ML MG IVPB ONE ×2 (18:19→18:26)
[2019-02-14] MEDS ORDERED: ACETAMINOPHEN 1000 MG/100 ML VIAL (NON FORMULARY) IVPB ONE (18:20)
--- NOTE | 2019-02-14 18:23 | PDOC ---
History of Present Illness - General Chief Complaint: Pain Stated Complaint: STOMACH CRAMPS Time Seen by Provider: 02/14/19 18:14 - History of Present Illness Initial Comments: 02/14/19 18:21 38 M with h/o opiate addiction presenting to ED with abdominal cramps, N+V. Pt states that he is detoxing from percocets. He last used 3 days ago, and since then he has had epigastric cramping pain associated with nausea and vomiting. Denies any F/C. Denies diarrhea/constipation. Pt also admits to occasional marijuana. Denies any other substance abuse. Past History - Past Medical History Allergies/Adverse Reactions: Allergies Allergy/AdvReac Type Severity Reaction Status Date / Time No Known Allergies Allergy Verified 02/14/19 18:02 Home Medications: Ambulatory Orders Ondansetron [Zofran *Odt*] 4 mg SL TID PRN #12 od.tablet 02/14/19 COPD: No DVT: No - Psycho Social/Smoking Cessation Hx Smoking Status: No Smoking History: Current every day smoker Have you smoked in the past 12 months: No Number of Cigarettes Smoked Daily: 10 Information on smoking cessation initiated: Yes 'Breaking Loose' booklet given: 08/09/18 Hx Alcohol Use: Yes (SOCIAL) Drug/Substance Use Hx: Yes (PERCOCET) Substance Use Type: Alcohol, Opiates Hx Substance Use Treatment: No Review of Systems - Review of Systems Comments:: 02/14/19 18:22 "GENERAL/CONSTITUTIONAL: No fever or chills. No weakness. HEAD, EYES, EARS, NOSE AND THROAT: No change in vision. No ear pain or discharge. No sore throat. CARDIOVASCULAR: No chest pain, no shortness of breath, no loss of consciousness RESPIRATORY: No cough, wheezing, or hemoptysis. GASTROINTESTINAL: +epigastric pain, + nausea, + vomiting, no diarrhea or constipation. GENITOURINARY: No dysuria, frequency, or change in urination. MUSCULOSKELETAL: No joint or muscle swelling or pain. No neck or back pain. SKIN: No rash NEUROLOGIC: No vertigo, no change in strength/sensation. ENDOCRINE: No increased thirst. No abnormal weight change. HEMATOLOGIC/LYMPHATIC: No anemia, easy bleeding, or history of blood clots. ALLERGIC/IMMUNOLOGIC: No hives or skin allergy. *Physical Exam - Vital Signs Last Vital Signs Temp Pulse Resp BP Pulse Ox 97.3 F L 126 H 16 130/95 100 02/14/19 18:02 02/14/19 18:02 02/14/19 18:02 02/14/19 18:02 02/14/19 18:02 - Physical Exam Comments: 02/14/19 18:22 "GENERAL: Awake, alert, and fully oriented, in no acute distress. HEAD: No signs of trauma EYES: PERRLA, EOMI, sclera anicteric, conjunctiva clear ENT: Auricles normal inspection, hearing grossly normal, nares patent, oropharynx clear without exudates. Moist mucosa NECK: Nontender, no stepoffs, Normal ROM, supple, no lymphadenopathy, JVD, or masses LUNGS: Breath sounds equal, clear to auscultation bilaterally. No wheezes, and no crackles HEART: Regular rate and rhythm, normal S1 and S2, no murmurs, rubs or gallops ABDOMEN: + epigastric TTP, negative mccurdy's, normoactive bowel sounds. No guarding, no rebound. No masses EXTREMITIES: Normal range of motion, no edema. No clubbing or cyanosis. No cords, erythema, or tenderness NEUROLOGICAL: Cranial nerves II through XII intact. 5/5 strength and sensation in all extremities, Normal speech, normal gait, normal cerebellar function SKIN: Warm, Dry, normal turgor, no rashes or lesions noted. ED Treatment Course - LABORATORY CBC & Chemistry Diagram: 02/14/19 20:35 02/14/19 18:22 Medical Decision Making - Medical Decision Making 02/14/19 18:22 38 M presenting with epigastric pain, N+V. Likely 2/2 opiate withdrawal. No lower quadrant tenderness on exam to suggest appy/colitis/diverticulitis. No RUQ tenderness/mccurdy's to suggest biliary colic. - Labs - GI cocktail - IV fluids - Reassess Pt signed out to oncoming attending at 7PM. Discharge - Discharge Information Problems reviewed: Yes Clinical Impression/Diagnosis: Opioid withdrawal, Nausea, Vomiting Condition: Stable Disposition: HOME - Additional Discharge Information Prescriptions: Ondansetron [Zofran *Odt*] 4 mg SL TID PRN #12 od.tablet PRN Reason: Nausea - Follow up/Referral - Patient Discharge Instructions Additional Instructions: If you develop any further nausea get the prescription filled for Zofran and take 1 tablet as often as every 4-6 hours as needed. For diarrhea get some Imodium and take as directed on the box. Go to [facility] in the morning for detox. Return to the emergency department immediately with ANY new, persistent or worsening symptoms. Continue any medications as previously prescribed by your physician. You should follow up with your primary doctor as soon as possible regarding today's emergency department visit. . Please make sure your doctor reviews the results of your emergency evaluation. Thank you for coming to the Emergency Department today for your care. It was a pleasure to see you today. Please note that your evaluation is INCOMPLETE until you follow-up with your doctor. - Post Discharge Activity
[2019-02-14] MEDS ORDERED: ONDANSETRON 4 MG/2 ML VIAL ONE (18:27)
[2019-02-14 18:34] LABS: HEMOGLOBIN 15.7 GM/dl (11.7-16.9)
[2019-02-14 18:37] LABS: HEMATOCRIT 46.6 % (35.4-49); MCH 31.5 pg (25.7-33.7); MCHC 33.8 g/dl (32.0-35.9); MEAN CELL VOLUME 93.3 fl (80-96); MEAN PLT VOLUME 8.6 fl (7.5-11.1); PLATELET COUNT 446 K/MM3 (134-434); RDW 13.4 % (11.9-15.9); WHITE BLOOD COUNT 17.4 K/mm3 (4.0-10.8)
[2019-02-14] MEDS ORDERED: ACETAMINOPHEN INJECTION 100 ML IVPB ONE (18:37)
[2019-02-14 18:49] LABS: ALBUMIN 4.7 g/dl (3.4-5.0); BILIRUBIN,TOTAL 1.2 mg/dl (0.2-1); CALCIUM 9.7 mg/dl (8.5-10); TOT PROT 8.5 g/dl (6.4-8.2)
[2019-02-14 19:00] LABS: PLATELET ESTIMATE ADEQUATE
[2019-02-14] MEDS ORDERED: SODIUM CHLORIDE 1,000 ML IV ONE (19:16)
--- NOTE | 2019-02-14 20:48 | PDOC ---
*Physical Exam - Vital Signs Last Vital Signs Temp Pulse Resp BP Pulse Ox 97.3 F L 85 16 130/95 96 02/14/19 18:02 02/14/19 19:17 02/14/19 19:17 02/14/19 18:02 02/14/19 19:17 ED Treatment Course - LABORATORY CBC & Chemistry Diagram: 02/14/19 20:35 02/14/19 18:22 - ADDITIONAL ORDERS Additional order review: Laboratory Results 02/14/19 02/14/19 18:22 18:22 Sodium 139 Potassium 4.0 Chloride 102 Carbon Dioxide 27 Anion Gap 10 BUN 17.0 Creatinine 1.0 Est GFR (CKD-EPI)AfAm 110.94 Est GFR (CKD-EPI)NonAf 95.72 Random Glucose 134 H Calcium 9.7 Total Bilirubin 1.2 H AST 22 ALT 22 Alkaline Phosphatase 55 Total Protein 8.5 H Albumin 4.7 Lipase 91 02/14/19 18:22 RBC 5.00 MCV 93.3 MCHC 33.8 RDW 13.4 MPV 8.6 Neutrophils % No Result Required. Lymphocytes % No Result Required. - Medications Given in the ED: ED Medications Discontinued Medications Generic Name Dose Route Start Last Admin Trade Name Freq PRN Reason Stop Dose Admin Acetaminophen 1,000 mg 02/14/19 18:20 02/14/19 18:39 Ofirmev Injection - IVPB 02/14/19 18:21 1,000 mg ONCE ONE Administration Famotidine/Sodium Chloride 20 mg in 50 mls @ 100 mls/hr 02/14/19 18:19 18:30 Pepcid 20 Mg Premixed Ivpb - IVPB 02/14/19 18:48 100 mls/hr ONCE ONE Administration Sodium Chloride 1,000 mls @ 1,000 mls/hr 02/14/19 18:19 02/14/19 18:30 Normal Saline - IV 02/14/19 19:18 1,000 mls/hr ASDIR STA Administration Sodium Chloride 1,000 mls @ 1,000 mls/hr 02/14/19 19:16 02/14/19 19:19 Normal Saline - IV 02/14/19 20:15 1,000 mls/hr .Q1H ONE Administration Ondansetron HCl 4 mg 02/14/19 18:19 02/14/19 18:30 Zofran Injection IVPB 02/14/19 18:20 4 mg ONCE ONE Administration ED Progress Note - Progress Note Progress Note: 02/14/19 19:00 This patient was transferred to me from Dr. maher at 1900 hrs. Patient is a 38- year-old male who has history of chronic opioid use and comes in complaining of opioid withdrawal. Patient wants opioid detox. There is no detox beds available [facility] so patient was given IV fluids, antiemetics and a work-up is pending. 20:00 Patient has had no further vomiting is sleeping on my evaluation and white count is 17,000. This most likely is secondary to patient's withdrawal and vomiting. As patient was quite tachycardic when he came in. Patient given 2 L of fluid and CBC will be repeated. 20:45 Patient resting comfortably no further vomiting CBC pending. Patient will be discharged I will send Zofran to his pharmacy [facility] and instruct him to go to [facility] in the morning for detox. 02/14/19 21:06 Patient is white count is improved after 2 L of fluid. Patient has no further vomiting is resting comfortably. Patient instructed to go to detox at [facility] in the morning and prescription for Zofran was sent to his pharmacy. Discharge - Discharge Information Problems reviewed: Yes Clinical Impression/Diagnosis: Opioid withdrawal Condition: Stable - Admission No - Additional Discharge Information Prescriptions: Ondansetron [Zofran *Odt*] 4 mg SL TID PRN #12 od.tablet PRN Reason: Nausea - Follow up/Referral - Patient Discharge Instructions Additional Instructions: If you develop any further nausea get the prescription filled for Zofran and take 1 tablet as often as every 4-6 hours as needed. For diarrhea get some Imodium and take as directed on the box. Go to [facility] in the morning for detox. Return to the emergency department immediately with ANY new, persistent or worsening symptoms. Continue any medications as previously prescribed by your physician. You should follow up with your primary doctor as soon as possible regarding today's emergency department visit. . Please make sure your doctor reviews the results of your emergency evaluation. Thank you for coming to the Emergency Department today for your care. It was a pleasure to see you today. Please note that your evaluation is INCOMPLETE until you follow-up with your doctor. - Post Discharge Activity
[2019-02-14 20:50] LABS: HEMATOCRIT 41.6 % (35.4-49); HEMOGLOBIN 13.9 GM/dl (11.7-16.9); MCH 31.6 pg (25.7-33.7); MCHC 33.3 g/dl (32.0-35.9); MEAN CELL VOLUME 94.9 fl (80-96); MEAN PLT VOLUME 8.4 fl (7.5-11.1); PLATELET COUNT 402 K/MM3 (134-434); RBC 4.38 M/mm3 (4.00-5.60); RDW 13.3 % (11.9-15.9)
[2019-02-14 21:15] VITALS: BP 136/97; PULSE 87; TEMP 99.5
[2019-02-14] MEDS ORDERED: cloNIDine HCL 0.1 MG TABLET PO ONE (21:15)
[2019-02-14] MEDS ORDERED: cloNIDine HCL 0.1 MG TABLET ONE (21:17)
== END 2019-02-14 21:20 | disposition home or self-care (01) ==
LOC: FER 18:00
PROC: 3E033NZ Introduction of Analgesics, Hypnotics, Sedatives into Peripheral Vein, Percutaneous Approach (ICD-10-PCS; principal; 2019-02-14)
PROC: 3E033GC Introduction of Other Therapeutic Substance into Peripheral Vein, Percutaneous Approach (ICD-10-PCS; 2019-02-14)
DX: F11.23 Opioid dependence with withdrawal (principal)
CPT/HCPCS: 36415; 80053; 83690; 85025; 85027; 99283-25; J0131; J0735; J7030

== ENCOUNTER 2019-02-15 23:07 | Emergency (ER) | payer OTHER ==
[2019-02-15 23:18] VITALS: BMI 23.4
--- NOTE | 2019-02-15 23:26 | PDOC ---
History of Present Illness - General Chief Complaint: Pain, Acute Stated Complaint: STOMACH CRAMPS Time Seen by Provider: 02/15/19 23:25 History Source: Patient Exam Limitations: No Limitations - History of Present Illness Initial Comments: 02/15/19 23:31 This is a 38-year-old male who comes in complaining of withdrawal. Patient said is been about for 5 days since he last had any opioids. Patient has a history of opioid withdrawal in the past. Patient was here yesterday for opioid withdrawal was treated, hydrated and told to follow-up at a rehab center. Patient said he did go to the rehab center but they had no beds so he is back here again. Patient is complaining of nausea vomiting throughout the day and crampy abdominal pain. Allergies: as per nursing notes Past Medical History: none Social history: Lives with family. Opioid dependence Surgical history: None General: No fevers or chills, no weakness, no weight loss HEENT: No change in vision. No sore throat,. No ear pain CardioVascular: no chest discomfort. No shortness of breath Respiratory:No cough, or wheezing. Gastrointestinal: +nausea, vomiting, no diarrhea or constipation, No rectal bleeding, + crampy abdominal pain Genitourinary: No dysuria, hematuria, or frequency Musculoskeletal: No joint or muscle pain or swelling Neurologic: No headache, vertigo, dizziness or loss of consciousness Psychiatric: nor depression Skin: No rashes or easy bruising Endocrine: no increased thirst or abnormal weight change Allergic: no skin or latex allergy All other systems reviewed and normal Exam: General: Well-nourished well-developed individual, no acute distress HEENT: Throat: Normal, tonsils normal, no erythema or exudate Neck: Supple, no meningeal signs, no lymphadenopathy Eyes::Pupils equal reactive and round, extraocular motion intact Chest: Nontender to palpation Cardiac: S1-S2 normal, regular rate and rhythm, no murmurs rubs or gallops Respiratory: Lungs clear to auscultation bilateral Abdomen: Soft, nondistended, normal bowel sounds, there is mild tenderness on palpation epigastric area. Extremities: Warm, dry, no cyanosis, clubbing, or edema Skin: No rashes Neuro: Alert and oriented x3, CN II - XII intact, nonfocal exam with normal strength, normal sensation, normal reflexes, normal gait, Psych: Normal mood and affect 02/15/19 23:40 Assessment and plan: This is a 38-year-old male who comes in complaining of nausea and vomiting secondary to opioid withdrawal. Patient had work-up initiated including CBC, comp, lactic acid, IV fluids x2 L, Reglan and clonidine. 02/16/19 02:17 Patient eloped from the ED with an IV in his arm during the resuscitation of a critical patient in another room. Past History - Past Medical History Allergies/Adverse Reactions: Allergies Allergy/AdvReac Type Severity Reaction Status Date / Time No Known Allergies Allergy Verified 02/14/19 18:02 Home Medications: Ambulatory Orders Ondansetron [Zofran *Odt*] 4 mg SL TID PRN #12 od.tablet 02/14/19 COPD: No DVT: No - Psycho Social/Smoking Cessation Hx Smoking Status: No Smoking History: Smoker current status UNK Have you smoked in the past 12 months: No Number of Cigarettes Smoked Daily: 10 Information on smoking cessation initiated: No 'Breaking Loose' booklet given: 08/09/18 Hx Alcohol Use: Yes (SOCIAL) Drug/Substance Use Hx: Yes Substance Use Type: Alcohol, Opiates Hx Substance Use Treatment: No *Physical Exam - Vital Signs Last Vital Signs Temp Pulse Resp BP Pulse Ox 98.7 F 98 H 16 149/105 H 98 02/15/19 23:09 02/15/19 23:09 02/15/19 23:09 02/15/19 23:09 02/15/19 23:09 ED Treatment Course - LABORATORY CBC & Chemistry Diagram: 02/15/19 23:50 02/15/19 23:50 Discharge - Discharge Information Problems reviewed: Yes Clinical Impression/Diagnosis: Opioid withdrawal Condition: Fair Disposition: ELOPED - Follow up/Referral - Patient Discharge Instructions - Post Discharge Activity
[2019-02-15] MEDS ORDERED: cloNIDine HCL 0.1 MG TABLET PO ONE (23:28)
[2019-02-15] MEDS ORDERED: SODIUM CHLORIDE 1,000 ML IV ONE ×2 (23:29)
[2019-02-15] MEDS ORDERED: PROCHLORPERAZINE INJECTION 10 MG/2 ML VIAL IVPB ONE (23:30)
[2019-02-15] MEDS ORDERED: METOCLOPRAMIDE HCL INJECTION 10 MG/2 ML VIAL ONE (23:37)
[2019-02-15] MEDS ORDERED: cloNIDine HCL 0.1 MG TABLET ONE (23:37)
[2019-02-16 00:46] LABS: BASO % 0.2 % (0-2.0); HEMATOCRIT 44.6 % (35.4-49); LYMPH % 9.4 % (8-40); MCH 31.3 pg (25.7-33.7); MCHC 33.7 g/dl (32.0-35.9); MEAN CELL VOLUME 92.9 fl (80-96); MEAN PLT VOLUME 8.5 fl (7.5-11.1); MONO % 4.2 % (3.8-10.2); NEUT % 86.2 % (42.8-82.8); PLATELET COUNT 409 K/MM3 (134-434); RBC 4.81 M/mm3 (4.00-5.60); RDW 13.7 % (11.9-15.9)
[2019-02-16 01:15] VITALS: BP 139/88; PULSE 74; TEMP 98.2
[2019-02-16 01:25] LABS: ALBUMIN 4.1 g/dl (3.4-5.0); BILIRUBIN,TOTAL 1.4 mg/dL (0.2-1); BLOOD UREA NITROGEN 12.1 mg/dL (7-18); CALCIUM 9.6 mg/dL (8.5-10.1); CREATININE 0.9 mg/dL (0.55-1.3); POTASSIUM 4.1 mmol/L (3.5-5.1); TOT PROT 7.8 g/dl (6.4-8.2)
--- NOTE | 2019-02-16 12:15 | EKG ---
Test Reason : Blood Pressure : / mmHG Vent. Rate : 081 BPM Atrial Rate : 081 BPM P-R Int : 126 ms QRS Dur : 092 ms QT Int : 358 ms P-R-T Axes : -29 086 -52 degrees QTc Int : 415 ms NORMAL SINUS RHYTHM NONSPECIFIC ST AND T WAVE ABNORMALITY ABNORMAL ECG NO PREVIOUS ECGS AVAILABLE Confirmed by ANGELIKA ROLLE MD ([id number]) on 02/16/2019 12:15:37 PM Referred By: JOEY TSE Confirmed By:ANGELIKA ROLLE MD
== END 2019-02-16 02:15 | disposition left against medical advice (07) ==
LOC: FER 23:07
PROC: 3E033GC Introduction of Other Therapeutic Substance into Peripheral Vein, Percutaneous Approach (ICD-10-PCS; principal; 2019-02-15)
PROC: 3E0337Z Introduction of Electrolytic and Water Balance Substance into Peripheral Vein, Percutaneous Approach (ICD-10-PCS; 2019-02-15)
DX: F11.23 Opioid dependence with withdrawal (principal)
CPT/HCPCS: 36415; 71045-TC-FY; 74177-TC; 80053; 83605; 83690; 85025; 93005; 99283-25; J7030

== ENCOUNTER 2019-02-17 13:45 | Emergency (ER) | payer OTHER ==
[2019-02-17 13:51] VITALS: BMI 24.3
[2019-02-17] MEDS ORDERED: SODIUM CHLORIDE 1,000 ML IV ONE (14:09)
[2019-02-17] MEDS ORDERED: METOCLOPRAMIDE HCL INJECTION 10 MG/2 ML VIAL IVPUSH ONE (14:09)
[2019-02-17] MEDS ORDERED: MAG HYDROX/AL HYDROX/SIMETH -MYLANTA- ORAL SUSPENSION PO ONE (14:15)
[2019-02-17] MEDS ORDERED: FAMOTIDINE 20 MG/50 ML IVPB 20 MG in PREMIX 50 IVPB ONE (14:15)
--- NOTE | 2019-02-17 14:15 | PDOC ---
History of Present Illness - General Chief Complaint: Nausea/Vomiting Stated Complaint: ABD PAIN/VOMITING Time Seen by Provider: 02/17/19 14:04 History Source: Patient Exam Limitations: No Limitations - History of Present Illness Travel History: No Initial Comments: 02/17/19 14:11 38y M hx of percocet dependence presents with a complaint for nausea vomiting abdominal pain. Patient states that is been dependent on 10/325 Percocet approximate 4 times a day for the past 2 years, he stopped taking the Percocet approximate 5 days ago and been having persistent abdominal cramping and vomiting. Patient states that he is unable to tolerate anything by mouth, also endorses diffuse crampy abdominal pain. Denies any fever, chills, diarrhea, blood per rectum, chest pain, shortness of breath, dysuria. Patient was seen in other hospitals last 2 nights, and went to detox but was turned away and sent to the ER for reevaluation. Patient denies any abdominal surgery Denies any other substances of abuse ros Constitutional - no reported Fever, Chills, HEENT: no reported vision changes, sore throat Respiratory: no reported cough, sob, hemoptysis Cardiac: no reported chest pain, palpitations, light headedness, leg swelling Abd/GI: +crampy abd pain, nausea, vomiting, no reported blood per rectum, melena, diarrhea : no reported dysuria, frequency, discharge Musculskelatal - no reported back pain, joint swelling skin - no reported bruising, erythema, rash neurological: no reported headache, numbness, focal weakness, tingling, ataxia, hematologic: no reported easy bruising, easy bleeding exam GENERAL: The patient is awake, alert, and fully oriented, Nontoxic - in no acute distress. HEAD: Normocephalic, atraumatic. EYES: extraocular movements intact, sclera anicteric, conjunctiva clear. ENT: Normal voice, Moist mucous membranes. NECK: Normal range of motion, supple LUNGS: Breath sounds equal, clear to auscultation bilaterally. No wheezes, no rhonchi, no rales. HEART: Regular rate and rhythm, normal S1 and S2 without murmur, rub or gallop. ABDOMEN: Mild diffuse tenderness, no focality, no rebound or guarding, negative Nascimento signs no pain at McBurney's point EXTREMITIES: Normal range of motion, no edema. NEUROLOGICAL: No facial assymetry, Normal speech, PSYCH: Normal mood, normal affect. SKIN: Warm, Dry, normal turgor, Suspect possible opiate withdrawal versus gastroenteritis We will give fluids we will check some labs and will give the patient Zofran and Pepcid Past History - Past Medical History Allergies/Adverse Reactions: Allergies Allergy/AdvReac Type Severity Reaction Status Date / Time No Known Allergies Allergy Verified 02/17/19 13:51 Home Medications: Ambulatory Orders Ondansetron [Zofran *Odt*] 4 mg SL TID PRN #12 od.tablet 02/14/19 Ondansetron [Zofran -] 4 mg PO TID PRN #14 tablet 02/17/19 COPD: No DVT: No - Psycho Social/Smoking Cessation Hx Smoking Status: No Smoking History: Never smoked Have you smoked in the past 12 months: No Number of Cigarettes Smoked Daily: 10 'Breaking Loose' booklet given: 08/09/18 Hx Alcohol Use: Yes (SOCIAL) Drug/Substance Use Hx: Yes (percocet) Substance Use Type: Alcohol, Opiates Hx Substance Use Treatment: No *Physical Exam - Vital Signs Last Vital Signs Temp Pulse Resp BP Pulse Ox 98.2 F 100 H 18 129/91 99 02/17/19 13:47 02/17/19 13:47 02/17/19 13:47 02/17/19 13:47 02/17/19 13:47 ED Treatment Course - LABORATORY CBC & Chemistry Diagram: 02/17/19 14:30 02/17/19 14:09 Medical Decision Making - Medical Decision Making 02/17/19 15:28 Patient is feeling improved denies any current abdominal pain denies any nausea Patient blood work is reviewed he does have a persistent leukocytosis, may be stress response from his vomiting. Patient's abdomen was soft and nontender 02/17/19 16:52 Pt feeling improved tolerating oral intake abd soft nontender Discharge - Discharge Information Problems reviewed: Yes Clinical Impression/Diagnosis: Vomiting Qualifiers: Vomiting type: unspecified Vomiting Intractability: non-intractable Nausea presence: with nausea Qualified Code(s): R11.2 - Nausea with vomiting, unspecified Leukocytosis Qualifiers: Leukocytosis type: unspecified Qualified Code(s): D72.829 - Elevated white blood cell count, unspecified Condition: Improved Disposition: HOME - Admission No - Follow up/Referral Referrals: Mitchell Mccarthy MD [Staff Physician] - - Patient Discharge Instructions Patient Printed Discharge Instructions: DI for Vomiting -- Adult Additional Instructions: TAke zofran as needed for your nausea Please return to the ED for worsening symtoms or any abdominal pain, fevers,or other concerns. Your white count was elevated, please follow up with your doctor for further evaluation to have this repeated. Print Language: [place] - Post Discharge Activity
[2019-02-17 14:42] LABS: BASO % 0.7 % (0-2.0); HEMATOCRIT 47.1 % (35.4-49); LYMPH % 4.1 % (8-40); MCH 31.7 pg (25.7-33.7); MCHC 33.9 g/dl (32.0-35.9); MEAN CELL VOLUME 93.5 fl (80-96); MEAN PLT VOLUME 8.2 fl (7.5-11.1); MONO % 6.3 % (3.8-10.2); NEUT % 88.9 % (42.8-82.8); PLATELET COUNT 418 K/MM3 (134-434); RBC 5.04 M/mm3 (4.00-5.60); WHITE BLOOD COUNT 18.8 K/mm3 (4.0-10.0)
[2019-02-17 15:18] LABS: ALBUMIN 4.6 g/dl (3.4-5.0); BILIRUBIN,TOTAL 1.6 mg/dL (0.2-1); BLOOD UREA NITROGEN 20.7 mg/dL (7-18); CALCIUM 9.9 mg/dL (8.5-10.1); CREATININE 1.1 mg/dL (0.55-1.3); POTASSIUM 4.1 mmol/L (3.5-5.1); TOT PROT 8.6 g/dl (6.4-8.2)
[2019-02-17 17:19] VITALS: BP 122/84; PULSE 86; TEMP 98
== END 2019-02-17 17:19 | disposition home or self-care (01) ==
LOC: JER 13:45
PROC: 3E033GC Introduction of Other Therapeutic Substance into Peripheral Vein, Percutaneous Approach (ICD-10-PCS; principal; 2019-02-17)
PROC: 3E033GC Introduction of Other Therapeutic Substance into Peripheral Vein, Percutaneous Approach (ICD-10-PCS; 2019-02-17)
DX: R11.2 Nausea with vomiting, unspecified (principal); D72.829 Elevated white blood cell count, unspecified; F11.10 Opioid abuse, uncomplicated
CPT/HCPCS: 36415; 80053; 83690; 85025; 99282-25; J7030

== ENCOUNTER 2020-02-29 23:49 | Inpatient (IN) | payer OTHER ==
[2020-02-29 23:57] VITALS: BMI 23.5
[2020-03-01] MEDS ORDERED: MAGNESIUM SULFATE IN WATER 2 GM/50 ML IVPB IVPB ONE (00:01)
[2020-03-01] MEDS ORDERED: SODIUM BICARBONATE 8.4% - 50 ML ONE (00:01)
[2020-03-01] MEDS ORDERED: SODIUM CHLORIDE 0.9% 500 ML INFUS.BAG IV ONE ×2 (00:05→01:21)
[2020-03-01] MEDS ORDERED: LORazepam 2 MG/ML SDV VIAL ONE ×2 (00:09→00:41)
[2020-03-01] MEDS ORDERED: METOPROLOL TARTRATE 5 MG/5 ML VIAL IVPUSH ONE (00:12)
[2020-03-01] MEDS ORDERED: METOPROLOL TARTRATE 5 MG/5 ML VIAL ONE (00:14)
[2020-03-01 00:20] LABS: VENOUS O2 SATURATION 71.9 % (70-80); VENOUS PCO2 44.4 mmHg (38-52); VENOUS PH 7.433 (7.310-7.410)
[2020-03-01 00:56] LABS: BASO % 0.2 % (0-2.0); HEMATOCRIT 51.1 % (35.4-49); HEMOGLOBIN 16.7 GM/dL (11.7-16.9); LYMPH % 5.4 % (8-40); MCH 30.1 pg (25.7-33.7); MCHC 32.8 g/dl (32.0-35.9); MEAN CELL VOLUME 91.9 fl (80-96); MEAN PLT VOLUME 9.7 fl (7.5-11.1); MONO % 9.3 % (3.8-10.2); NEUT % 85.1 % (42.8-82.8); PLATELET COUNT 528 K/MM3 (134-434); RBC 5.56 M/mm3 (4.00-5.60); RDW 14.2 % (11.9-15.9); WHITE BLOOD COUNT 25.5 K/mm3 (4.0-10.0)
[2020-03-01 01:27] LABS: INR 1.12 (0.83-1.09); PROTHROMBIN TIME (PATIENT) 13.5 SEC (9.7-13.0)
[2020-03-01 01:32] LABS: CREATININE 2.6 mg/dL (0.55-1.3); POTASSIUM 4.4 mmol/L (3.5-5.1)
[2020-03-01 01:33] LABS: ALBUMIN 5.1 g/dl (3.4-5.0); BILIRUBIN,TOTAL 0.9 mg/dL (0.2-1); TOT PROT 10.3 g/dl (6.4-8.2)
[2020-03-01 02:43] LABS: ANISOCYTOSIS 0; HELMET CELLS 0; HOWELL-JOLLY BODIES 0; MACROCYTOSIS 0; OVALOCYTE 0; PLATELET ESTIMATE NORMAL; ROULEAU 0; SICKELED CELLS 0; TARGET CELLS 0; TEAR DROP CELLS 0; TOXIC GRANULATION 0
[2020-03-01] MEDS ORDERED: LACTATED RINGERS SOLUTION 1,000 ML IV SCH (03:30)
[2020-03-01 04:02] LABS: EPI CELLS 24 /uL (0-25.1); HYALINE CASTS 7 /uL (0-3.1); URINE APPEARANCE CLEAR; URINE BACTERIA 22 /uL (0-1359); URINE BILIRUBIN NEGATIVE (NEGATIVE); URINE COLOR YELLOW; URINE GLUCOSE (UA) NEGATIVE (NEGATIVE); URINE KETONE NEGATIVE (NEGATIVE); URINE LEUK ESTERASE NEGATIVE (NEGATIVE); URINE NITRITE NEGATIVE (NEGATIVE); URINE PROTEIN 1+ (NEGATIVE); URINE RBC 10 /uL (0-23.9); URINE UROBILINOGEN 0.2 mg/dL (0.2-1.0); URINE WBC 6 /uL (0-25.8)
[2020-03-01 04:06] LABS: METHADONE, UR NEGATIVE ng/ml (CUTOFF=300)
[2020-03-01 04:07] LABS: COCAINE, UR NEGATIVE ng/ml (CUTOFF=300); OPIATES, URI NEGATIVE ng/ml (CUTOFF=300); PHENCYCLIDINE,URINE NEGATIVE ng/ml (CUTOFF=25); URINE BARBITURATES NEGATIVE ng/ml (CUTOFF=200); URINE BENZODIAZEPINES NEGATIVE ng/ml (CUTOFF=200)
[2020-03-01 04:26] LABS: URINE AMPHETAMINES NEGATIVE ng/ml (CUTOFF=500)
[2020-03-01 08:12] LABS: HEMOGLOBIN 16.1 GM/dL (11.7-16.9); MCHC 33.6 g/dl (32.0-35.9); MEAN CELL VOLUME 92.3 fl (80-96); MEAN PLT VOLUME 9.7 fl (7.5-11.1); PLATELET COUNT 457 K/MM3 (134-434); RBC 5.19 M/mm3 (4.00-5.60); WHITE BLOOD COUNT 22.7 K/mm3 (4.0-10.0)
[2020-03-01 08:18] LABS: POTASSIUM 3.8 mmol/L (3.5-5.1)
[2020-03-01 08:22] LABS: ALBUMIN 4.8 g/dl (3.4-5.0); BLOOD UREA NITROGEN 52.8 mg/dL (7-18); CALCIUM 8.7 mg/dL (8.5-10.1); MAGNESIUM 3.2 mg/dL (1.8-2.4)
[2020-03-01 08:25] LABS: BILIRUBIN,TOTAL 0.7 mg/dL (0.2-1); CREATININE 2.3 mg/dL (0.55-1.3); PHOSPHOROUS 6.6 mg/dL (2.5-4.9); TOT PROT 9.4 g/dl (6.4-8.2)
[2020-03-01] MEDS ORDERED: LABETALOL HCL 100 MG TABLET (FP) PO ONE (08:49)
[2020-03-01] MEDS ORDERED: LABETALOL HCL 100 MG TABLET (FP) ONE (09:12)
[2020-03-01] MEDS: LACTATED RINGERS SOLUTION 1,000 ML IV SCH (09:20)
[2020-03-01] MEDS ORDERED: ACETAMINOPHEN 1000 MG/100 ML VIAL (NON FORMULARY) IVPB PRN (09:25)
[2020-03-01] MEDS: FOLIC ACID 1 MG TABLET (FP) PO SCH (11:48)
[2020-03-01] MEDS: ESCITALOPRAM OXALATE 10 MG TABLET PO SCH (11:48)
[2020-03-01] MEDS: NICOTINE 14 MG/24 HOURS TOPICAL PATCH TD SCH (11:49)
[2020-03-01] MEDS: THIAMINE HCL 100 MG TABLET (FP) PO SCH (11:49)
[2020-03-01 15:14] LABS: EPI CELLS 27 /uL (0-25.1); HYALINE CASTS 1 /uL (0-3.1); PH,URINE 7.5 (5.0-8.0); URINE APPEARANCE CLEAR; URINE BACTERIA 24 /uL (0-1359); URINE BILIRUBIN NEGATIVE (NEGATIVE); URINE COLOR YELLOW; URINE GLUCOSE (UA) NEGATIVE (NEGATIVE); URINE KETONE NEGATIVE (NEGATIVE); URINE LEUK ESTERASE NEGATIVE (NEGATIVE); URINE NITRITE NEGATIVE (NEGATIVE); URINE PROTEIN 1+ (NEGATIVE); URINE RBC 13 /uL (0-23.9); URINE WBC 11 /uL (0-25.8)
[2020-03-01 18:07] LABS: POTASSIUM 3.6 mmol/L (3.5-5.1)
[2020-03-01 18:09] LABS: BLOOD UREA NITROGEN 49.9 mg/dL (7-18); CALCIUM 9.1 mg/dL (8.5-10.1)
[2020-03-01] MEDS ORDERED: traZODone HCL 50 MG TABLET (FP) ONE (20:54)
[2020-03-01] MEDS ORDERED: traZODone HCL 100 MG TABLET (FP) PO SCH (22:00)
[2020-03-02 07:26] LABS: POTASSIUM 3.5 mmol/L (3.5-5.1)
[2020-03-02 07:39] LABS: CALCIUM 8.8 mg/dL (8.5-10.1)
[2020-03-02 07:40] LABS: BLOOD UREA NITROGEN 37.2 mg/dL (7-18)
[2020-03-02 07:43] LABS: CREATININE 1.6 mg/dL (0.55-1.3)
[2020-03-02] MEDS: ESCITALOPRAM OXALATE 10 MG TABLET PO SCH (10:18)
[2020-03-02] MEDS: THIAMINE HCL 100 MG TABLET (FP) PO SCH (10:19)
[2020-03-02] MEDS: FOLIC ACID 1 MG TABLET (FP) PO SCH (10:19)
[2020-03-02] MEDS: LACTATED RINGERS SOLUTION 1,000 ML IV SCH (10:20)
[2020-03-02] MEDS: NICOTINE 14 MG/24 HOURS TOPICAL PATCH TD SCH (10:20)
[2020-03-02 12:34] VITALS: BP 134/78; PULSE 84; TEMP 98.6
== END 2020-03-02 12:10 | disposition home or self-care (01) | DRG 918 ==
LOC: JER 23:49 → JERBED 03-01 02:17 → J4W 03-01 10:24
PROVIDERS: ADMIT Internal Medicine; ATTEND Internal Medicine
DX: T59.891A Toxic effect of other specified gases, fumes and vapors, accidental (unintentional), initial encounter (principal); N17.9 Acute kidney failure, unspecified; E87.0 Hyperosmolality and hypernatremia; R41.82 Altered mental status, unspecified; R00.0 Tachycardia, unspecified; F11.10 Opioid abuse, uncomplicated; F32.9 Major depressive disorder, single episode, unspecified; D72.829 Elevated white blood cell count, unspecified; I10 Essential (primary) hypertension; F19.10 Other psychoactive substance abuse, uncomplicated; F17.210 Nicotine dependence, cigarettes, uncomplicated
CPT/HCPCS: 36415; 70450-TC; 71045-TC-FY; 80048; 80053; 80307; 81003; 82550; 82553; 82803; 83735; 83930; 84100; 84439; 84443; 84484; 85025; 85027; 85610; 87040; 93005; 93010; 99285-25; C9803; J0131; U0003

== ENCOUNTER 2020-11-18 03:51 | Emergency (ER) | payer OTHER ==
[2020-11-18 04:09] VITALS: BP 141/95; PULSE 94; TEMP 98.1; BMI 25.8
== END 2020-11-18 04:33 | disposition home or self-care (01) ==
LOC: FER 03:51
DX: S93.401A Sprain of unspecified ligament of right ankle, initial encounter (principal); X50.9XXA Other and unspecified overexertion or strenuous movements or postures, initial encounter
CPT/HCPCS: 73610-TC-RT-FY; 99283-25

== ENCOUNTER 2021-10-26 23:09 | Emergency (ER) | payer OTHER ==
[2021-10-26] MEDS ORDERED: KETOROLAC TROMETHAMINE 60 MG/2 ML VIAL IM ONE (23:15)
[2021-10-26 23:32] VITALS: BP 155/82; PULSE 76; RESP 18; TEMP 97.7; BMI 25.0
[2021-10-26] MEDS ORDERED: KETOROLAC TROMETHAMINE 60 MG/2 ML VIAL ONE (23:33)
== END 2021-10-26 23:55 | disposition home or self-care (01) ==
LOC: FER 23:09
PROC: 3E023GC Introduction of Other Therapeutic Substance into Muscle, Percutaneous Approach (ICD-10-PCS; principal; 2021-10-26)
DX: S86.002A Unspecified injury of left Achilles tendon, initial encounter (principal); X50.0XXA Overexertion from strenuous movement or load, initial encounter
CPT/HCPCS: 99284-25

== ENCOUNTER 2021-10-29 06:13 | Day surgery (SDC) | payer OTHER ==
[2021-10-28 11:59] VITALS: BMI 25.8
[2021-10-29] MEDS ORDERED: MIDAZOLAM HCL 2 MG/2 ML SINGLE DOSE VIAL ONE (07:02)
[2021-10-29] MEDS ORDERED: PROPOFOL 20 ML ONE (07:02)
[2021-10-29] MEDS ORDERED: SUCCINYLCHOLINE CHLORIDE 200 MG/10 ML SYRINGE ONE (07:02)
[2021-10-29] MEDS ORDERED: BUPIVACAINE LIPOSOME/PF (EXPAREL) 266 MG/20 ML VIAL ONE (07:06)
[2021-10-29] MEDS ORDERED: BUPIVACAINE HCL/PF 0.5% (5MG/ML) 10 ML VIAL ONE (07:30)
[2021-10-29] MEDS ORDERED: DEXAMETHASONE SOD PHOSPHATE 4 MG/1 ML VIAL ONE ×2 (08:03→08:25)
[2021-10-29] MEDS ORDERED: ONDANSETRON 4 MG/2 ML VIAL ONE ×2 (08:03→08:25)
[2021-10-29] MEDS ORDERED: ceFAZolin SODIUM 1 GM VIAL ONE (08:03)
[2021-10-29] MEDS ORDERED: ACETAMINOPHEN INJECTION 100 ML IVPB ONE (08:15)
[2021-10-29] MEDS ORDERED: KETOROLAC TROMETHAMINE 30 MG/1 ML VIAL ONE (08:25)
[2021-10-29] MEDS ORDERED: LACTATED RINGERS SOLUTION 1,000 ML IV SCH (09:45)
[2021-10-29 10:02] VITALS: RESP 18
[2021-10-29 10:11] VITALS: TEMP 97.4
[2021-10-29 10:34] VITALS: BP 126/80; PULSE 72
== END 2021-10-29 11:31 | disposition home or self-care (01) ==
LOC: FASU 06:13
PROVIDERS: ATTEND Orthopaedic Surgery Sports Medicine
PROC: 0LQP0ZZ Repair Left Lower Leg Tendon, Open Approach (ICD-10-PCS; principal; 2021-10-29 08:14)
DX: S86.012A Strain of left Achilles tendon, initial encounter (principal); X58.XXXA Exposure to other specified factors, initial encounter; Y93.9 Activity, unspecified; Y92.9 Unspecified place or not applicable
CPT/HCPCS: 94760